=== PATIENT | female | born 1985 | race Two or more races ===

== ENCOUNTER → 2020-02-03 14:10 | Outpatient (BNVA) | payer MEDICAID, SELFPAY | PROVIDERS: PCP Emergency Medicine; Referring Provider Emergency Medicine; Visit Provider Nurse Practitioner | DX: K31.84 Gastroparesis (principal); K21.00 Gastro-esophageal reflux disease with esophagitis, without bleeding; K25.7 Chronic gastric ulcer without hemorrhage or perforation; K59.04 Chronic idiopathic constipation; Z79.899 Other long term (current) drug therapy | CPT/HCPCS: 99212 ==

== ENCOUNTER 2020-09-03 11:32 | Outpatient (REF) | payer MEDICAID, SELFPAY ==
--- NOTE | ~2020-09-03 | XR_ITS ---
EXAMINATION: XR SHOULDER, LEFT CLINICAL INFORMATION: Left shoulder pain. COMPARISON: None TECHNIQUE: AP external rotation, Grashey, scapular Y, and axillary views of the left shoulder. FINDINGS: Small to moderate spurring is seen at the insertion of the rotator cuff at the greater tuberosity. The glenohumeral and acromioclavicular joints are intact without significant degenerative changes. The soft tissues are unremarkable. XR/XR shoulder LT min 2V IMPRESSION: Small to moderate degenerative spur at the rotator cuff insertion without acute abnormality.
== END 2020-09-03 11:33 | disposition home or self-care (01) ==
LOC: HO.XRAY 11:32
PROVIDERS: Absent Provider Family Medicine; PCP Family Medicine; Visit Provider Registered Nurse Community Health
DX: M25.512 Pain in left shoulder (principal)
CPT/HCPCS: 73030

== ENCOUNTER → 2020-09-22 14:02 | Outpatient (BNVA) | payer MEDICAID, SELFPAY | PROVIDERS: PCP Emergency Medicine; Visit Provider Nurse Practitioner ==

== ENCOUNTER → 2020-11-06 13:50 | Outpatient (BNVA) | payer MEDICAID, SELFPAY | PROVIDERS: PCP Emergency Medicine; Visit Provider Nurse Practitioner | DX: K21.9 Gastro-esophageal reflux disease without esophagitis (principal); K59.04 Chronic idiopathic constipation; K31.84 Gastroparesis; K64.9 Unspecified hemorrhoids; K57.92 Diverticulitis of intestine, part unspecified, without perforation or abscess without bleeding; K25.7 Chronic gastric ulcer without hemorrhage or perforation | CPT/HCPCS: 99212 ==

== ENCOUNTER 2020-12-21 14:08 | Outpatient (REF) | payer MEDICAID, SELFPAY ==
[2020-12-21 16:04] LABS: Hematocrit 35.8 % (37-47); Mean Corpuscular HGB Conc 30.7 g/dl (31.0-35.0); Mean Corpuscular Hemoglobin 25.8 pg (27.0-33.0); Mean Platelet Volume 11.3 fL (9.4-12.3); Platelet Count 317 X10*3/uL (160-400); Red Blood Count 4.26 X10*6/uL (4.20-5.50); Red Cell Distribution Width 21.2 % (11.0-16.0); White Blood Count 4.6 X10*3/uL (4.8-10.8)
[2020-12-21 16:27] LABS: Alanine Aminotransferase 16 U/L (0-31); Albumin Level 4.2 g/dL (3.5-5.0); Alkaline Phosphatase 78 U/L (39-117); Anion Gap 11 (12-20); Aspartate Amino Transferase 17 U/L (5-31); Bilirubin Total 0.3 mg/dL (0.0-1.0); Blood Urea Nitrogen 14 mg/dL (9-16); C Reactive Protein 0.18 mg/dL (< or = 0.50); Carbon Dioxide 27 mmol/L (22-29); Chloride 105 mmol/L (96-108); Estimated Glomerular Filt Rate > 60; Glucose Random 211 mg/dL (60-115); Potassium 4.3 mmol/L (3.3-5.1); Sodium 139 mmol/L (135-145); Total Protein 7.7 g/dL (6.5-8.0)
[2020-12-28 10:27] LABS: Transglutaminase Ab IgG 36.8 U/mL; Transglutaminase IgA >250.0 U/mL
== END 2020-12-21 14:09 | disposition home or self-care (01) ==
LOC: HO.LAB 14:08
PROVIDERS: Nurse Practitioner Family; Visit Provider Nurse Practitioner
DX: Z12.11 Encounter for screening for malignant neoplasm of colon (principal); K58.9 Irritable bowel syndrome, unspecified; R14.0 Abdominal distension (gaseous); R10.11 Right upper quadrant pain
CPT/HCPCS: 36415; 80053; 83516; 85027; 86140

== ENCOUNTER 2020-12-22 15:20 | Outpatient (REF) | payer MEDICAID, SELFPAY | END 2020-12-22 15:21 | disposition home or self-care (01) | LOC: HO.LNP 15:20 | PROVIDERS: Visit Provider Nurse Practitioner Family | DX: K21.9 Gastro-esophageal reflux disease without esophagitis (principal) | CPT/HCPCS: 87338 ==

== ENCOUNTER → 2021-01-20 13:58 | Outpatient (BNVA) | payer MEDICAID, SELFPAY | PROVIDERS: Visit Provider Nurse Practitioner Family | DX: K25.7 Chronic gastric ulcer without hemorrhage or perforation (principal); K21.9 Gastro-esophageal reflux disease without esophagitis; K59.04 Chronic idiopathic constipation; K31.84 Gastroparesis; K64.9 Unspecified hemorrhoids; K90.0 Celiac disease | CPT/HCPCS: 99212 ==

== ENCOUNTER → 2021-02-02 15:21 | Outpatient (BNVA) | payer MEDICAID, SELFPAY | PROVIDERS: Visit Provider Nurse Practitioner Family ==

== ENCOUNTER → 2021-03-11 12:51 | Outpatient (BNVA) | payer MEDICAID, SELFPAY | PROVIDERS: PCP Family Medicine; Visit Provider Dietitian, Registered | DX: K90.0 Celiac disease (principal) | CPT/HCPCS: 97802 ==

== ENCOUNTER → 2021-04-22 13:56 | Outpatient (BNVA) | payer MEDICAID, SELFPAY | PROVIDERS: PCP Family Medicine; Visit Provider Dietitian, Registered | DX: K90.0 Celiac disease (principal); E10.9 Type 1 diabetes mellitus without complications; Z71.3 Dietary counseling and surveillance | CPT/HCPCS: 97803 ==

== ENCOUNTER 2021-07-13 14:08 | Outpatient (REF) | payer MEDICAID, SELFPAY ==
[2021-07-14 21:56] LABS: Transglutaminase IgA 148.1 U/mL
[2021-07-17 13:10] LABS: Vitamin D 25-OH, D2 <4 ng/mL; Vitamin D 25-OH, D3 10 ng/mL; Vitamin D 25-OH, Total 10 ng/mL (30-100)
== END 2021-07-13 14:09 | disposition home or self-care (01) ==
LOC: HO.LAB 14:08
PROVIDERS: PCP Family Medicine; Referring Provider Family Medicine; Visit Provider Nurse Practitioner Family
DX: R10.9 Unspecified abdominal pain (principal); K21.9 Gastro-esophageal reflux disease without esophagitis; K90.0 Celiac disease; E55.9 Vitamin D deficiency, unspecified
CPT/HCPCS: 36415; 82306; 86364; 99212

== ENCOUNTER → 2021-10-21 13:11 | Outpatient (BNVA) | payer MEDICAID, SELFPAY | PROVIDERS: PCP Family Medicine; Visit Provider Dietitian, Registered | DX: K90.0 Celiac disease (principal); E10.9 Type 1 diabetes mellitus without complications; Z71.3 Dietary counseling and surveillance | CPT/HCPCS: 97803 ==

== ENCOUNTER → 2021-10-25 11:11 | Day surgery (SDC) | payer MEDICAID, SELFPAY ==
--- NOTE | 2021-10-22 10:35 | HO.ANESPROP2 ---
HPI - Anesthesia Eval Consult details Narrative: CX'd DOS for high POC 36yo F for Upper Endoscopy PMFSH Active Problems Active Problems: All Active Problems (Updated 07/22/21 @ 15:50 by TRELL Watson) Celiac disease (Acute) Chronic gastric erosion (Acute) Diverticulitis (Acute) Hemorrhoids (Acute) GERD (gastroesophageal reflux disease) (Acute) Chronic idiopathic constipation (Acute) IBS (irritable bowel syndrome) (Acute) Past Medical History Medical History (Updated 07/22/21 @ 15:50 by TRELL Watson) Chronic gastric erosion Chronic idiopathic constipation Type 1 diabetes mellitus Family History Family History Father No problems noted. Mother Asthma Maternal Grandmother Diabetes HTN (hypertension) Breast cancer Sister Diabetes Surgical History Surgical History H/O hand surgery Hx of esophagogastroduodenoscopy Social History Social History Household Members: Spouse Alcohol intake: current Alcohol intake frequency: does not drink Patient Tobacco Use Status: Never used Tobacco Use of substances other than those prescribed or required for medical reasons: No Have you been hit, kicked, punched, or otherwise hurt by someone within the past year? If so, by whom?: No Are you DNR?: No Advance Directives: No Advance Directives Information Provided: Yes Meds Allergies Allergy/AdvReac Type Severity Reaction Status Date / Time iodine [IODINE] Allergy Severe HIVES, Verified 07/13/21 14:22 THROAT SWELLING Home Medications Medication Instructions Recorded Confirmed Last Taken Type ferrous gluconate 324 mg (38 mg 0 mg PO 01/20/21 Unknown History iron) tablet lorazepam 0.5 mg tablet 0 mg PO 01/20/21 Unknown History zolpidem 10 mg tablet 10 mg PO BEDTIME PRN Sleep 01/20/21 10/19/21 Unknown History albuterol sulfate 90 mcg/actuation 2 puff PO Q4-6H PRN Wheezing 10/19/21 10/19/21 Unknown History aerosol inhaler (ProAir HFA) escitalopram oxalate 10 mg tablet 1 tab PO QAM 10/19/21 10/19/21 Unknown History insulin lispro 100 unit/mL 0 - 100 unit subcut DAILY 10/19/21 10/19/21 Unknown History subcutaneous solution (Humalog U-100 Insulin) levonorgestrel 0.15 mg-ethinyl 1 tab PO DAILY 10/19/21 10/19/21 Unknown History estradiol 30 mcg tablets,3 mos pack(91) (Lurdes) Exam Exam Date and Time: October 22, 2021 1035 Assessment and Plan Assessment Anesthesia Assessment: Chart Reviewed
[2021-10-25 12:17] VITALS: BMI 21.9
[2021-10-25 12:38] LABS: Glucose, Whole Blood 313 mg/dL (60-115)
[2021-10-25 12:43] VITALS: BP 122/68; PULSE 102; RESP 18; TEMP 36.2; O2SAT 100
[2021-10-25 12:46] LABS: UPreg QC Valid YES; Urine Pregnancy NEGATIVE (NEGATIVE)
--- NOTE | 2021-10-25 12:57 | MHC.SHP ---
Pre-Procedural Eval Section A Date of Service: 10/25/21 The patient is an INPATIENT: No The History & Physical has been completed within 30 days and I have reviewed it.: No Section B Chief Complaint: reflux,epigastric pain,celiac Details of Present Illness: Abdominal pain, history of celiac disease Relevant Family History (Specify if Yes): No Relevant Social History: None Present Medications: see Short Stay Collaborative assessment Medical History: Significant History (Chronic gastric erosion Chronic idiopathic constipation Type 1 diabetes mellitus) History of Previous Operations: Relevant previous surgery/procedure and date(s) (H/O hand surgery Hx of esophagogastroduodenoscopy) Allergies: Allergies Allergy/AdvReac Type Severity Reaction Status Date / Time iodine [IODINE] Allergy Severe HIVES, Verified 07/13/21 14:22 THROAT SWELLING Plan I have reviewed the history and physical and performed a pertinent physical examination on my patient. No changes have occurred unless specified.
--- NOTE | 2021-10-25 13:13 | PC.NURSE ---
dr joyner and kwame at bedside pt cancelled high bs over 300
--- NOTE | 2021-10-25 13:17 | PC.NURSE ---
diabetic meds review with dr joyner and anesthesia plan inplace for meds taken prior to procedure when next schedule pt verbalized understanding with interpretor
== END ==
PROVIDERS: Nurse Practitioner; PCP Family Medicine; Visit Provider Internal Medicine Gastroenterology
DX: K21.9 Gastro-esophageal reflux disease without esophagitis (principal); Z53.09 Procedure and treatment not carried out because of other contraindication; E10.9 Type 1 diabetes mellitus without complications
CPT/HCPCS: 81025; 82947

== ENCOUNTER → 2021-11-08 15:20 | Outpatient (BNVA) | payer MEDICAID, SELFPAY | PROVIDERS: PCP Family Medicine; Referring Provider Family Medicine; Visit Provider Nurse Practitioner Family | DX: R10.9 Unspecified abdominal pain (principal); K21.9 Gastro-esophageal reflux disease without esophagitis; K90.0 Celiac disease; K58.1 Irritable bowel syndrome with constipation | CPT/HCPCS: 99212 ==

== ENCOUNTER 2022-03-23 07:54 | Day surgery (SDC) | payer MEDICAID, SELFPAY ==
[2022-03-18 14:01] VITALS: BMI 22.6
[2022-03-23 08:45] LABS: Glucose, Whole Blood 180 mg/dL (60-115)
[2022-03-23 08:51] VITALS: BP 107/66; PULSE 85; RESP 18; TEMP 36.3; O2SAT 100
[2022-03-23 08:53] LABS: UPreg QC Valid YES; Urine Pregnancy NEGATIVE (NEGATIVE)
--- NOTE | 2022-03-23 09:23 | MHC.SHP ---
Pre-Procedural Eval Section A Date of Service: 03/23/22 Section B Chief Complaint: reflux disease Details of Present Illness: celaic pos Ab Relevant Family History (Specify if Yes): No Relevant Social History: None Present Medications: see Short Stay Collaborative assessment Medical History: Significant History (Chronic gastric erosion Chronic idiopathic constipation Type 1 diabetes mellitus, celiac disease) History of Previous Operations: Relevant previous surgery/procedure and date(s) (H/O hand surgery Hx of esophagogastroduodenoscopy) Allergies: Allergies Allergy/AdvReac Type Severity Reaction Status Date / Time iodine [IODINE] Allergy Severe HIVES, Verified 11/08/21 15:31 THROAT SWELLING Review of Systems Sugical H&P ROS: Negative: Constitution, Cardiovascular, Respiratory, Neurological, Psychiatric, Hem-Onc, Allergic/Immunologic, Gastrointestinal, Genitourinary, Musculoskeletal, Integumentary, Endocrine and Eyes/Ears/Nose/Throat Exam Surgical H&P Exam: Normal: HEENT, Normal: Heart, Normal: Lungs, Normal: Extremities, Normal: Abdomen, Normal: Skin and Normal: Neurological Plan Diagnosis/Plan: Unchanged I have reviewed the history and physical and performed a pertinent physical examination on my patient. No changes have occurred unless specified. Time Spent With Patient Time: Total time managing care of this patient today ____ minutes.
--- NOTE | 2022-03-23 09:39 | P.CONAN_ITS ---
[facility] Active Problems Active Problems: All Active Problems (Updated 07/22/21 @ 15:50 by Darcy Palma [facility]) Celiac disease (Acute) Chronic gastric erosion (Acute) Diverticulitis (Acute) Hemorrhoids (Acute) GERD (gastroesophageal reflux disease) (Acute) Chronic idiopathic constipation (Acute) IBS (irritable bowel syndrome) (Acute) Past Medical History Medical History Chronic gastric erosion Chronic idiopathic constipation Type 1 diabetes mellitus Family History Family History Father No problems noted. Mother Asthma Maternal Grandmother Diabetes HTN (hypertension) Breast cancer Sister Diabetes Family history of problems with anesthesia: No Surgical History Surgical History H/O hand surgery Hx of esophagogastroduodenoscopy History of Problems with Anesthesia: No Social History Social History Household Members: Spouse Alcohol intake: current Alcohol intake frequency: does not drink Patient Tobacco Use Status: Never used Tobacco Use of substances other than those prescribed or required for medical reasons: No Are you DNR?: No Advance Directives: No Advance Directives Information Provided: Yes Meds Allergies Allergy/AdvReac Type Severity Reaction Status Date / Time iodine [IODINE] Allergy Severe HIVES, Verified 11/08/21 15:31 THROAT SWELLING Active Medications: Current Medications Ondansetron HCl (Ondansetron Hcl 4 Mg/2 Ml Vial) 4 mg IVPUSH ONCE PRN PRN Reason: Nausea and Vomiting Home Medications Medication Instructions Recorded Confirmed Last Taken Type ferrous gluconate 324 mg (38 mg 0 mg PO 01/20/21 Unknown History iron) tablet lorazepam 0.5 mg tablet 0 mg PO 01/20/21 Unknown History zolpidem 10 mg tablet 10 mg PO BEDTIME PRN Sleep 01/20/21 10/19/21 Unknown History albuterol sulfate 90 mcg/actuation 2 puff PO Q4-6H PRN Wheezing 10/19/21 10/19/21 Unknown History aerosol inhaler (ProAir HFA) escitalopram oxalate 10 mg tablet 1 tab PO QAM 10/19/21 10/19/21 Unknown History insulin lispro 100 unit/mL 0 - 100 unit subcut DAILY 10/19/21 10/19/21 Unknown History subcutaneous solution (Humalog U-100 Insulin) levonorgestrel 0.15 mg-ethinyl 1 tab PO DAILY 10/19/21 10/19/21 Unknown History estradiol 30 mcg tablets,3 mos pack(91) (Lurdes) Exam Exam Date and Time: March 23, 2022 0939 Height,Weight and Vital Signs: Height 5 ft 1 in Weight 54.431 kg Last Vital Signs Temp 97.4 F 03/23/22 08:51 Pulse 85 03/23/22 08:51 Resp 18 03/23/22 08:51 BP 107/66 03/23/22 08:51 Pulse Ox 100 03/23/22 08:51 O2 Del Method 03/23/22 08:51 Pertinent Lab Results Pertinent Lab Results: Laboratory Tests 03/23/22 03/23/22 08:15 08:41 POC Glucose 180 H Urine Test NEGATIVE Airway Mallampati Class: II TM Dist: >3cm Partial: Lower Heart: rrr Lungs: clear Assessment and Plan Final Anesthetic Review Family History of Problems with Anesthesia: No History of Problems with Anesthesia: No NPO: Yes ASA Class: II Final Preanesthetic Review: No Changes in Pt Med Stat, Meds/Allgs Chart Reviewed, Consent Obtained/Reviewed and Anes Risks/Benef Reviewed Patient Risk: Low Procedure Risk: Low Anesthetic Plan Anesthetic Plan: MAC: Disposition: Standard PACU
--- NOTE | 2022-03-23 09:46 | P.OP_ITS ---
Operative Note Operative Note Date of Service: 03/23/22 Narrative: Procedure Description: EGD Indication: GERD, celiac Ab pos (been on gluten free diet) Anesthesia: MAC FLEXIBLE TRANSORAL UPPER GASTROINTESTINAL ENDOSCOPY UPPER ENDOSCOPY Consent: Indications for the procedure and potential complications of bleeding, perforation, reaction to medications and missed diagnosis were discussed with the patient and informed consent was obtained. Instrument: Olympus GIF H 190 J mid size upper endoscope Monitoring: Vital signs and clinical assessment, continuous EKG monitoring, Pulse oximetry, Carbon Dioxide monitoring and blood pressure monitoring were done throughout the procedure. Procedure: The patient was placed in the left lateral decubitis position and pre-procedure medications were administered and a bite block was placed. The endoscope was inserted into the mouth and advanced under direct vision to the third part of duodenum. A careful inspection was made as the upper endoscope was withdrawn including a retroflexed examination of the proximal stomach; Findings and interventions are described below. Findings: Larynx:normal Esophagus: GE junction at 35 cm, diaphragm hiatus at 35 cm, very mild esoph agitis, bx taken from GEJ, and proximal/distal esophagus Stomach: Patchy gastric erythema, moderate severe in antrum with retained food and reduced motility noted. Biopsies were obtained. Grade 2 flap valve on retroflexed examination of the cardia. Duodenum: flattened mucosa with fissuring and scalloping, bx taken Intervention: Biopsies as noted above Impression/Findings: possible gastroparesis esophagitis gastritis duodenitis PLAN: would consider repeating GES if H pylori pos then treat hold nsaids gluten free diet adherence
[2022-03-23 10:08] VITALS: BP 94/56; PULSE 95; RESP 16; TEMP 36.8; O2SAT 99
[2022-03-23 10:22] LABS: Glucose, Whole Blood 40 mg/dL (60-115)
[2022-03-23 10:22] LABS: Glucose, Whole Blood 32 mg/dL (60-115)
[2022-03-23 10:23] VITALS: BP 108/69; PULSE 84; RESP 16; TEMP 36.8; O2SAT 100
[2022-03-23 10:28] LABS: Glucose, Whole Blood 236 mg/dL (60-115)
[2022-03-23] MEDS: Dextrose 50 % 25 GM/50 ML SYRINGE IVPUSH (10:28)
--- NOTE | 2022-03-23 10:28 | PC.NURSE ---
received patient and she was asking to check blood sugar. POC 40, notified OJ 2 cups and a banana given. Rechecked blood sugar 32. Dr. Tran notified Dr. Maldonado at the bedside with orders for D5 25gram 50ml given vis IV with positive effect. POC up 245. Patient remained A&Ox3 skin pale warm and dry. Continue to monitor.
[2022-03-23 10:35] VITALS: BP 103/68; PULSE 84; RESP 16; TEMP 36.4; O2SAT 100
== END 2022-03-23 11:27 | disposition home or self-care (01) ==
PROVIDERS: Visit Provider Internal Medicine Gastroenterology
PROC: 0DJ08ZZ Inspection of Upper Intestinal Tract, Via Natural or Artificial Opening Endoscopic (ICD-10-PCS; CPT 43235; principal; 2022-03-23 09:20)
DX: K21.9 Gastro-esophageal reflux disease without esophagitis (principal); K29.50 Unspecified chronic gastritis without bleeding; K29.80 Duodenitis without bleeding; K20.80 Other esophagitis without bleeding; K44.9 Diaphragmatic hernia without obstruction or gangrene; K90.0 Celiac disease; K58.9 Irritable bowel syndrome, unspecified; E10.9 Type 1 diabetes mellitus without complications; Z79.4 Long term (current) use of insulin; Z79.899 Other long term (current) drug therapy; Z91.041 Radiographic dye allergy status
CPT/HCPCS: 43239; 81025; 82947; 88305; 88342

== ENCOUNTER → 2022-04-15 14:09 | Outpatient (BNVA) | payer MEDICAID, SELFPAY | PROVIDERS: PCP Registered Nurse; Visit Provider Nurse Practitioner Family | DX: K21.00 Gastro-esophageal reflux disease with esophagitis, without bleeding (principal); K29.70 Gastritis, unspecified, without bleeding; K29.80 Duodenitis without bleeding; K90.0 Celiac disease; K58.1 Irritable bowel syndrome with constipation; Z98.890 Other specified postprocedural states | CPT/HCPCS: 99212 ==

== ENCOUNTER 2022-07-12 11:52 | Outpatient (REF) | payer MEDICAID, SELFPAY ==
[2022-07-12 13:28] LABS: Hematocrit 30.8 % (37.0-47.0); Hemoglobin 9.5 g/dl (12.0-16.0); Mean Corpuscular HGB Conc 30.8 g/dl (31.0-35.0); Mean Corpuscular Hemoglobin 25.6 pg (27.0-33.0); Mean Platelet Volume 10.5 fL (9.4-12.3); Platelet Count 320 X10*3/uL (160-400); Red Blood Count 3.71 X10*6/uL (4.20-5.50); Red Cell Distribution Width 15.2 % (11.0-16.0); White Blood Count 3.9 X10*3/uL (4.8-10.8)
== END 2022-07-12 11:53 | disposition home or self-care (01) ==
LOC: HO.LAB 11:52
PROVIDERS: PCP Registered Nurse; Visit Provider Nurse Practitioner Family
DX: K21.9 Gastro-esophageal reflux disease without esophagitis (principal); D64.9 Anemia, unspecified
CPT/HCPCS: 36415; 85027; 99212

== ENCOUNTER → 2022-08-09 08:32 | Outpatient (REF) | payer MEDICAID, SELFPAY ==
--- NOTE | ~2022-08-09 | NM_ITS ---
EXAMINATION: MD RADIONUCLIDE SOLID FOOD GASTRIC EMPTYING 4-HOUR STUDY CLINICAL INFORMATION: Gastroesophageal reflux disease without esophagitis. COMPARISON: None available. TECHNIQUE: A standard meal consisting of 4 oz of Egg Beaters brand tagged with 0.757 microcuries Tc-99m Sulfur Colloid, 8 oz water and 1 slice of toast with jelly was administered orally to the patient. Images were obtained using a dual head gamma camera in the anterior and posterior projections over of the stomach immediately post ingestion and at hourly intervals up to 4 hours post ingestion. The anterior and posterior counts at each time interval were averaged using the geometric mean and expressed as percentage of the immediate post ingestion counts. FINDINGS: There is good visualization of activity in the stomach immediately post ingestion. As the study progresses, there is good clearance of activity from the stomach and visualization of progressively increasing small bowel activity. By the end of the study, there is almost no retention noted in the stomach. Retention in the stomach at each time interval was: 1 hour 58%% (normal 37%-90%) 2 hours 35% (normal 30%-60%) 3 hours 19% 4 hours 6% (normal 0%-10%) MD/MD gastric emptying study IMPRESSION: Normal 4-hour solid food gastric emptying study.
== END ==
LOC: HO.NUCMED 08:32
PROVIDERS: PCP Registered Nurse; Visit Provider Nurse Practitioner Family
DX: K21.9 Gastro-esophageal reflux disease without esophagitis (principal)
CPT/HCPCS: 78264; A9541

== ENCOUNTER 2022-09-16 13:26 | Outpatient (REF) | payer MEDICAID, SELFPAY ==
--- NOTE | ~2022-09-16 | US_ITS ---
EXAMINATION: US PELVIS CLINICAL INFORMATION: Abnormal bleeding COMPARISON: None available. TECHNIQUE: Ultrasound of the pelvis is performed using both transabdominal and transvaginal transducers along with Doppler. Transvaginal imaging is performed due to inadequate visualization transabdominally. FINDINGS: The uterus is retroverted and retroflexed and measures 9.6 x 4.1 x 5.9 cm in dimension. No focal uterine lesion. Endometrial thickness is normal measuring 0.2 cm. The right ovary is normal-appearing and measures 2.1 x 1.2 x 1.7 cm. Left ovary measures 4.5 x 2.5 x 3 cm. There is a 3.1 x 2.2 x 2.6 cm complex left ovarian cyst with septations and internal echoes. This likely represents a hemorrhagic cyst. Doppler color flow is documented to the right ovary. There is no fluid in the pelvis. US/US pelvic and transvaginal IMPRESSION: Normal-appearing uterus and endometrium. 3.1 x 2.2 x 2.6 cm complex left ovarian cyst suggestive of a hemorrhagic cyst.
== END 2022-09-16 13:27 | disposition home or self-care (01) ==
LOC: HO.US 13:26
PROVIDERS: PCP General Practice; Visit Provider General Practice
DX: N93.9 Abnormal uterine and vaginal bleeding, unspecified (principal)
CPT/HCPCS: 76830; 76856

== ENCOUNTER 2022-10-19 17:45 | Outpatient (REF) | payer MEDICAID, SELFPAY ==
[2022-10-20 14:07] LABS: BV Int Neg Control Negative (Negative); BV Int Pos Control Positive (Positive)
[2022-10-20 15:47] LABS: CT PCR NOT DETECTED (Not Detect.); NG PCR NOT DETECTED (Not Detect.)
== END 2022-10-19 17:46 | disposition home or self-care (01) ==
LOC: HO.HHCLNP 17:45
PROVIDERS: Visit Provider General Practice
DX: N93.9 Abnormal uterine and vaginal bleeding, unspecified (principal)
CPT/HCPCS: 0353U; 36415; 87086; 87480; 87491; 87510; 87591; 87660

== ENCOUNTER 2022-12-26 14:23 | Outpatient (REF) | payer MEDICAID, SELFPAY ==
[2022-12-26 17:09] LABS: Lipase 20 U/L (8-78)
[2022-12-26 17:47] LABS: Folate 12.3 ng/mL (> or = 4.0); Vitamin B12 837 pg/mL (200-900)
[2022-12-28 13:28] LABS: Transglutaminase IgA 46.7 U/mL
[2022-12-30 16:38] LABS: Vitamin D 25-OH, D2 <4 ng/mL; Vitamin D 25-OH, D3 19 ng/mL; Vitamin D 25-OH, Total 19 ng/mL (30-100)
== END 2022-12-26 14:24 | disposition home or self-care (01) ==
LOC: HO.LAB 14:23
PROVIDERS: PCP General Practice; Visit Provider Nurse Practitioner Family
DX: R10.9 Unspecified abdominal pain (principal); R19.7 Diarrhea, unspecified; E55.9 Vitamin D deficiency, unspecified; K21.9 Gastro-esophageal reflux disease without esophagitis; K90.0 Celiac disease; K64.9 Unspecified hemorrhoids; K58.1 Irritable bowel syndrome with constipation; D50.8 Other iron deficiency anemias
CPT/HCPCS: 36415; 82306; 82607; 82746; 83690; 86364; 99212

== ENCOUNTER 2022-12-26 14:23 | Outpatient (AMB) | payer MEDICAID, SELFPAY ==
--- NOTE | 2022-12-26 14:39 | A.OFFVIS_ITS ---
Intake Vital Signs 12/26/22 14:40 Height 5 ft 1 in Weight 118 lb 2.684 oz BMI 22.3 BP 85/50 L Blood Pressure Location Lt brachial Position Sitting Pulse 103 H Intake Visit Reasons: follow up GES Intake Note: Loly presents to in office follow up of gastric emptying scan. CC: Patient reports about 2 weeks with nausea, diarrhea, burning sensation, and heartburn. Pt sates she is not eating well to avoid going to the bathroom at [facility]. Patient reports she is concerned she ingested [place] water during the most recent water emergency but she is not sure. 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 Will change Nexium to omeprazole. Patient states that she was doing better when she was taking that in the past. She can continue take sucralfate at bedtime. Discussed with patient avoiding dietary triggers and late night snacking. Staying upright for minimum 3 hours after meals discussed with patient Anemia History of anemia in the past. Last available blood work was from December of 2020. Will repeat lab work today. Celiac disease Continue avoiding dietary triggers. Patient will continue avoiding gluten. We will send patient for upper endoscopy in the short future to evaluate her small bowel. Will also retest her transglutaminase next he visit. Hemorrhoids History of hemorrhoids will send a script for Proctosol any. Patient will call the office if he will continue me to have rectal bleeding or develops rectal pain Chronic idiopathic constipation Continue Senokot and colons. The patient will continue in to the constipated we might try to put her on Linzess. She IBS (irritable bowel syndrome) Postprandial abdominal bloating postprandially occasionally. Will send patient for gastric emptying study. Patient was encouraged to follow FODMAP diet. List of food recommended as well as list of food to avoid given to patient. I will see her in 3 months, sooner on as needed basis. Patient is agreeable to this plan and verbalizes understanding of instructions. She was given the opportunity to ask questions and all questions answered. TODAY'S VISIT: Patient is here today for follow-up. Patient reports that she has been feeling sick lately. Patient states that she is feeling nauseous, epigastric burning postprandially and even after drinking water. Patient states that she also has diarrhea. Having trouble at work as she has to run to the bathroom frequently. Patient is worry if she ingests that water that was contaminated. Patient denies feeling nauseous. States that she is taking sucralfate, however she feels like she has burning right after taking it. Patient is taking omeprazole in the morning, feels like it is not working. Patient states that she is trying to avoid gluten as best as she can. Diagnosis with celiac disease in the past and we have discussed the importance of avoiding gluten altogether in order for her to feel better. Patient reports that she has her bowels well except for recent diarrhea patient reports occasional dyspepsia without dysphagia or odynophagia. Denies melena, hematochezia, unintentional weight loss or ribbon like stools. [facility] Medical History Chronic gastric erosion Chronic idiopathic constipation Type 1 diabetes mellitus Surgical History H/O hand surgery Hx of esophagogastroduodenoscopy Family History Father No problems noted. Mother Asthma Maternal Grandmother Diabetes HTN (hypertension) Breast cancer Sister Diabetes Social History Household Members: Spouse Alcohol intake: current Alcohol intake frequency: does not drink Patient Tobacco Use Status: Never used Tobacco Review of Systems Const Denies weight gain and Denies weight loss ENT Reports no additional complaints, Denies dysphagia and Denies odynophagia Card Reports no additional complaints Resp Reports no additional complaints GI Reports abdominal pain (Epigastric), Denies belching, Denies melena, Denies bloating, Denies change in bowel habits, Denies dysphagia, Denies excessive flatus, Denies dyspepsia, Reports heartburn, Denies diarrhea, Reports loose stools, Reports nausea, Denies odynophagia and Denies vomiting Reports no additional complaints Musc Reports no additional complaints Neuro Reports no additional complaints Psych Reports no additional complaints Endo Reports no additional complaints Physical Exam Vital Signs: Last Vital Signs Pulse 103 H 12/26/22 14:40 BP 85/50 L 12/26/22 14:40 BMI result Body Mass Index 22.3 Const General: healthy appearing, no acute distress and well developed Nutritional Appearance: well nourished Orientation/consciousness: patient oriented x3 HEENT Head: Yes normal to inspection, Yes normocephalic and Yes atraumatic Face and sinus: Yes normal facial exam Mouth: Normal oral and palatal mucosa present Throat: Yes posterior oropharynx normal, Yes tonsils normal and Yes uvula midline Eyes General: appearance normal, both eyes and all related structures Neck Neck: Yes normal visual inspection, Yes full ROM and Yes trachea midline Thyroid: Thyroid normal Resp Effort & Inspection: normal respiratory effort, able to speak in complete sentences, no tracheal deviation and symmetric chest movement Auscultation: clear to auscultation bilaterally Cardio Rate: regular rate Heart sounds: S1 normal heart sound present and S2 normal heart sound present GI Inspection: Yes normal to inspection and No distended Palpation (GI): Soft to palpation, not firm, nontender and No hepatosplenomegaly present Auscultation: normal bowel sounds General: Yes no CVA tenderness Back/Spine/Pelvis Back: no CVA tenderness Skin General skin exam: elasticity normal, turgor normal and dry skin Neuro General: patient oriented x3 Psych Appearance: grossly normal Mental Status: mental status grossly normal Speech and movement: Normal speech and movement present Results Reviewed Results Reviewed: GASTRIC EMPTYING STUDY FINDINGS: There is good visualization of activity in the stomach immediately post ingestion. As the study progresses, there is good clearance of activity from the stomach and visualization of progressively increasing small bowel activity. By the end of the study, there is almost no retention noted in the stomach. Retention in the stomach at each time interval was: 1 hour 58%% (normal 37%-90%) 2 hours 35% (normal 30%-60%) 3 hours 19% 4 hours 6% (normal 0%-10%) NM/NM gastric emptying study IMPRESSION: Normal 4-hour solid food gastric emptying study. Assessment & Plan Assessment & Plan (1) GERD (gastroesophageal reflux disease): Code(s): K21.9 - Gastro-esophageal reflux disease without esophagitis Qualifiers: Esophagitis presence: esophagitis presence not specified Qualified Code(s): K21.9 - Gastro-esophageal reflux disease without esophagitis (2) Celiac disease: Code(s): K90.0 - Celiac disease (3) Hemorrhoids: Code(s): K64.9 - Unspecified hemorrhoids Qualifiers: Hemorrhoid type: unspecified Qualified Code(s): K64.9 - Unspecified hemorrhoids (4) Chronic idiopathic constipation: Code(s): K59.04 - Chronic idiopathic constipation (5) IBS (irritable bowel syndrome): Code(s): K58.9 - Irritable bowel syndrome without diarrhea Qualifiers: Irritable bowel syndrome type: with constipation Qualified Code(s): K58.1 - Irritable bowel syndrome with constipation (6) Anemia: Code(s): D64.9 - Anemia, unspecified Qualifiers: Anemia type: iron deficiency Iron deficiency anemia type: inadequate dietary iron intake Qualified Code(s): D50.8 - Other iron deficiency anemias Plan Patient will start taking pantoprazole in the morning. She can stop sucralfate at bedtime and start taking famotidine and. The importance of avoiding dietary triggers discussed with her again. Stressed the importance of avoiding gluten altogether. Will repeat transglutaminase to see if she has been restricting gluten. Will send her for to do GI panel to rule out any viral component of her having diarrhea. Will also rule out pancreatic insufficiency. Will recheck vitamin B12 and folate as well as vitamin-D level. Will check for H pylori and will treat empirically if positive. Continue taking Proctosol. Patient was also encouraged to do Sitz baths. Patient will return in 3 months, sooner on as needed basis. She is agreeable to this plan and verbalizes understanding of instructions. She was given the opportunity to ask questions and all questions answered. Thank you for allowing me to participate in her care Orders: Orders Pancreatic Elastase-1 12/27/22 R10.9 - Unspecified abdominal pain Vitamin B12 and Folate 12/26/22 R19.7 - Diarrhea, unspecified Lipase 12/26/22 R10.9 - Unspecified abdominal pain Transglutaminase IgA 12/26/22 R10.9 - Unspecified abdominal pain GI Panel 12/27/22 R19.7 - Diarrhea, unspecified H pylori Ag Stool 12/27/22 K21.9 - Gastro-esophageal reflux disease without esophagitis Vitamin D 25-OH (D2 and D3) 12/26/22 E55.9 - Vitamin D deficiency, unspecified Medications: New pantoprazole take one tablet half an hour before breakfast 40 mg PO DAILY 30 tabs 2RF K21.9 - Gastro-esophageal reflux disease without esophagitis famotidine (Pepcid) 20 mg PO BEDTIME 30 tabs 3RF K21.9 - Gastro-esophageal reflux disease without esophagitis Refilled hydrocortisone 2.5% (Proctosol HC) 1 appl [place] BID-QID PRN 30 grams 2RF hemorrhoids K64.9 - Unspecified hemorrhoids Discontinued sucralfate Discontinued Reason: Doctor's Order 1 g PO BID PRN 60 tabs 3RF GI irritation omeprazole Discontinued Reason: Doctor's Order 40 mg PO DAILY 90 caps 3RF K21.9 - Gastro-esophageal reflux disease without esophagitis Coding Level of Care Code Est Pt Level 4 (56400) Diagnoses Gastroesophageal reflux disease, unspecified whether esophagitis present K21.9 Esophagitis presence: esophagitis presence not specified Celiac disease K90.0 Hemorrhoids, unspecified hemorrhoid type K64.9 Hemorrhoid type: unspecified Chronic idiopathic constipation K59.04 Irritable bowel syndrome with constipation K58.1 Irritable bowel syndrome type: with constipation Iron deficiency anemia secondary to inadequate dietary iron intake D50.8 Anemia type: iron deficiency Iron deficiency anemia type: inadequate dietary iron intake Time Spent (min) 35 Comment 20 minutes spent with patient and additional 15 minutes spent reviewing her records.
[2022-12-26 14:40] VITALS: BP 85/50; PULSE 103; BMI 22.3
== END 2022-12-26 15:34 | disposition home or self-care (01) ==
PROVIDERS: PCP General Practice; Visit Provider Nurse Practitioner Family
DX: K21.9 Gastro-esophageal reflux disease without esophagitis (principal); K90.0 Celiac disease; K64.9 Unspecified hemorrhoids; K58.1 Irritable bowel syndrome with constipation; D50.8 Other iron deficiency anemias
CPT/HCPCS: 99214

== ENCOUNTER 2022-12-27 17:25 | Outpatient (REF) | payer MEDICAID, SELFPAY ==
[2022-12-28 09:25] LABS: Adenovirus F 40/41 Not Detected (Not Detect.); Astrovirus Not Detected (Not Detect.); Campylobacter Not Detected (Not Detect.); Cryptosporidium Not Detected (Not Detect.); Cyclospora cayetanensis Not Detected (Not Detect.); E. coli EAEC Not Detected (Not Detect.); E. coli EPEC Not Detected (Not Detect.); E. coli ETEC Not Detected (Not Detect.); E. coli STEC Not Detected (Not Detect.); Entamoeba histolytica Not Detected (Not Detect.); Giardia lamblia Not Detected (Not Detect.); Norovirus GI/GII Not Detected (Not Detect.); Plesiomonas shigelloides Not Detected (Not Detect.); Rotavirus A Not Detected (Not Detect.); Salmonella Not Detected (Not Detect.); Sapovirus Not Detected (Not Detect.); Shigella sp./EIEC Not Detected (Not Detect.); Vibrio Not Detected (Not Detect.); Vibrio Cholerae Not Detected (Not Detect.); Yersinia enterocolitica Not Detected (Not Detect.)
[2023-01-05 18:12] LABS: Pancreatic Elastase-1 >500 mcg/g
== END 2022-12-27 17:26 | disposition home or self-care (01) ==
LOC: HO.LNP 17:25
PROVIDERS: Visit Provider Nurse Practitioner Family
DX: R10.9 Unspecified abdominal pain (principal); R19.7 Diarrhea, unspecified; K21.9 Gastro-esophageal reflux disease without esophagitis
CPT/HCPCS: 82656; 87338; 87507

== ENCOUNTER 2023-03-29 18:12 | Emergency (ER) | payer MEDICAID, SELFPAY ==
--- NOTE | ~2023-03-29 | XR_ITS ---
EXAMINATION: XR CHEST CLINICAL INFORMATION: Cough. COMPARISON: None available. TECHNIQUE: 2 views of the chest were obtained. FINDINGS: No significant abnormality is noted involving the heart, lungs, mediastinum, bony thorax or soft tissues. XR/XR chest 2V IMPRESSION: Unremarkable chest exam
[2023-03-29 18:20] VITALS: BP 172/116; PULSE 116; O2SAT 99; BMI 46.6
[2023-03-29 18:35] LABS: Glucose, Whole Blood 327 mg/dL (60-115)
--- NOTE | 2023-03-29 18:47 | PC.NURSE ---
Patient arrived from clinic after BS reading was high per ems BS was 446. Upon arrival to er BS 336. Patient reports BS`s have been high and this is normal for her. Reports fast heart beat and headache. Denies chest pain
[2023-03-29 18:50] LABS: MANUAL DIFF FLAG NO
[2023-03-29] MEDS: 0.9 % Sodium Chloride 1,000 ML 999 ML IV (18:52)
[2023-03-29 18:54] LABS: Basophils Percent Auto 0.4 % (0-2); Eosinophils Absolute Auto 0.3 X10*3/uL (0.0-0.4); Eosinophils Percent Auto 3.2 % (0-4); Hematocrit 34.2 % (37.0-47.0); Hemoglobin 11.1 g/dl (12.0-16.0); Imm Gran Abs Auto 0.02 X10*3/uL (0.00-0.03); Imm Gran Pct Auto 0.3 % (0.0-0.4); Lymphocytes Absolute Auto 1.7 X10*3/uL (1.2-4.9); Lymphocytes Percent Auto 21.3 % (20-40); Mean Corpuscular HGB Conc 32.5 g/dl (31.0-35.0); Mean Corpuscular Hemoglobin 29.5 pg (27.0-33.0); Mean Platelet Volume 10.3 fL (9.4-12.3); Monocytes Absolute Auto 0.5 X10*3/uL (0.1-1.2); Monocytes Percent Auto 6.4 % (2-11); Neutrophils Absolute Auto 5.3 x10*3/uL (2.0-8.3); Neutrophils Percent Auto 68.4 % (45-73); Platelet Count 318 X10*3/uL (160-400); Red Blood Count 3.76 X10*6/uL (4.20-5.50); Red Cell Distribution Width 13.7 % (11.0-16.0); White Blood Count 7.8 X10*3/uL (4.8-10.8)
[2023-03-29 18:57] LABS: VBG Base Excess 3.9 mmol/L; VBG HCO3 27 mmol/L (22-26); VBG pCO2 37 mmHg; VBG pH 7.47 (7.32-7.43); VBG pO2 69 mmHg
[2023-03-29 19:01] LABS: Venous Blood Gas Refer to POC result
[2023-03-29 19:11] LABS: Alanine Aminotransferase 11 U/L (0-31); Albumin Level 3.9 g/dL (3.5-5.0); Alkaline Phosphatase 71 U/L (39-117); Anion Gap 10 (12-20); Aspartate Amino Transferase 18 U/L (5-31); Beta-Hydroxybutyrate 0.09 mmol/L (0.02-0.27); Bilirubin Total 0.1 mg/dL (0.0-1.0); Blood Urea Nitrogen 16 mg/dL (9-16); Calcium 9.9 mg/dL (8.4-10.2); Carbon Dioxide 27 mmol/L (22-29); Chloride 108 mmol/L (96-108); Estimated Glomerular Filt Rate 54; Glucose Random 290 mg/dL (60-115); Lipase 32 U/L (8-78); Magnesium 2.1 mg/dL (1.6-2.6); Sodium 141 mmol/L (135-145); Total Protein 7.8 g/dL (6.5-8.0)
[2023-03-29 19:12] VITALS: BP 111/68; PULSE 98; RESP 20; TEMP 37; O2SAT 98
[2023-03-29 19:29] VITALS: BP 103/61; PULSE 105; RESP 16; O2SAT 98
[2023-03-29 19:35] LABS: Influenza A PCR NEGATIVE (Negative); Influenza B PCR NEGATIVE (Negative); Resp Syncy Virus RNA Qual PCR NEGATIVE (Negative); SARS COV2 PCR INHOUSE NEGATIVE (Negative)
--- NOTE | 2023-03-29 19:40 | ED_ITS ---
HPI - Recheck/Abnormal Lab/Rx General Chief Complaint: Recheck/Abnormal Lab/Rx Stated Complaint: HIGH BS PER EMS Time Seen by Provider: 03/29/23 18:20 Source: patient Mode of arrival: EMS Limitations: language barrier (Guyanese-speaking entry level lab technician utilized) History of Present Illness HPI narrative: Patient is a 37-year-old female who presents emergency department for evaluation of hyperglycemia. She is a type 1 diabetic, she has a continuous blood glucose monitor that has not been working recently, she is awaiting an appoint with her primary special educator in June of 2023 to have a replacement for her sensor. She contacted her primary care provider today to see if they could help her in getting a replacement, as she has noted that for the past week she has been experiencing higher blood glucose levels a normal. She states on a typical day it is usual for her to have a variation in her blood glucose levels between 100- 300s which she states is ?dependent on her mood?. However, over the past week she has noticed blood glucose level to be in the 400s which is atypical for her. This afternoon it was in the 400s prior to going to the doctor's office. She has been checking her glucose levels with a fingerstick monitor which corresponds with her insulin pump, [employer], which by her account schedules bolus dosages based on her glucometer readings which she states she has been compliant with. At the doctor's office today her glucose was reading ?high? and therefore she was referred to the emergency department by EMS. She reports otherwise feeling well, has no complaints, denies any recent ill like symptoms. She has been in DKA in the past, most recent episode was in 2006. Related Data Home Medications Medication Instructions Recorded Confirmed lorazepam 0.5 mg tablet 0 mg PO 01/20/21 albuterol sulfate 90 mcg/actuation 2 puff PO Q4-6H PRN Wheezing 10/19/21 10/19/21 aerosol inhaler (ProAir HFA) escitalopram oxalate 10 mg tablet 1 tab PO QAM 10/19/21 10/19/21 insulin lispro 100 unit/mL 0 - 100 unit subcut DAILY 10/19/21 10/19/21 subcutaneous solution (Humalog U-100 Insulin) trazodone 50 mg tablet 25 - 50 mg PO BEDTIME PRN 12/26/22 Previous Rx's Medication Instructions Recorded hydrocortisone 2.5 % topical cream 1 appl NC BID PRN hemorrhoids #30 12/21/20 with perineal applicator grams (Proctosol HC) sennosides 8.6 mg tablet (Natural 17.2 mg (2 x 8.6 mg) PO BEDTIME 11/08/21 Senna Laxative) constipation #60 tabs docusate sodium 100 mg capsule 100 mg PO BID #60 caps 01/26/22 (Stool Softener) hydrocortisone 2.5 % topical cream 1 appl NC BID-QID PRN hemorrhoids 12/26/22 with perineal applicator #30 grams (Proctosol HC) famotidine 20 mg tablet (Pepcid) 20 mg PO BEDTIME #90 tabs 12/27/22 pantoprazole 40 mg tablet,delayed 40 mg PO DAILY #90 tabs 12/27/22 release cholecalciferol (vitamin D3) 50 50 mcg PO DAILY #90 caps 12/30/22 mcg (2,000 unit) capsule dicyclomine 10 mg capsule 10 mg PO TID #90 caps 03/21/23 Allergies Allergy/AdvReac Type Severity Reaction Status Date / Time iodine [IODINE] Allergy Severe HIVES, Verified 12/26/22 14:44 THROAT SWELLING gluten Allergy Vomiting Verified 12/26/22 14:44 Review of Systems 2 Review of Systems: Yes all other systems are reviewed and are negative [facility] Past Medical History Attestation statement: The following information was validated with the patient. Source: old records reviewed Medical History Type 1 diabetes mellitus Chronic idiopathic constipation Chronic gastric erosion Surgical History H/O hand surgery Hx of esophagogastroduodenoscopy Family History Family History Father No problems noted. Mother Asthma Maternal Grandmother Diabetes HTN (hypertension) Breast cancer Sister Diabetes Social History Social History Household Members: Spouse Alcohol intake: current Alcohol intake frequency: does not drink Patient Tobacco Use Status: Never used Tobacco Advance Directives: No Advance Directives Information Provided: No Physical Exam 2 Vital Signs: Vital Signs: Last Vital Signs Temp 98.3 F 03/29/23 23:28 Pulse 100 03/29/23 23:28 Resp 14 03/29/23 23:28 BP 122/67 03/29/23 23:28 Pulse Ox 99 03/29/23 23:28 O2 Del Method Room Air 03/29/23 23:28 BMI result Body Mass Index 46.6 Appearance: Alert.?Oriented to person, place and time. No acute distress.?Normal affect. Eyes: Pupils equal, round and reactive to light.? ENT: Pharynx normal.?? Neck: Normal inspection.? Neck supple.?? CVS: Heart sounds normal. Normal heart rate and rhythm.? Pulses normal.?? Respiratory: No respiratory distress.? Lung sounds clear to auscultation bilaterally?? Abdomen: Soft and non-tender. Normoactive bowel sounds. Skin: Skin warm and dry.? Normal skin color.? Extremities: No lower extremity edema.? Neuro: Moves all extremities spontaneously. Sensation intact bilaterally. No focal neuro deficits. Ambulates with normal steady gait. Course Reevaluation(s) Reevaluation #1: CBC is without leukocytosis, normocytic anemia does not meet transfusion criteria. Venous blood gases revealing metabolic alkalosis, CMP overall unremarkable, no anion gap, random glucose of 290. Not consistent with DKA. Beta hydroxybutyrate within normal range. Viral testing is negative. Urinalysis without evidence of infection, hematuria present, currently menstruating. At this time feel that she is stable for discharge home. Given she is currently receiving bolus dosing with her insulin pump, and her blood sugars appear to be very labile in readings, would not make any changes to her current insulin regimen and advised close follow-up with her primary special educator. Reviewed worrisome signs and symptoms that would warrant re-evaluation in the emergency department. All questions answered. Stable for discharge. Time: 22:54 Medications Administered Discontinued Medications Generic Name Dose Route Start Last Admin Trade Name Freq PRN Reason Stop Dose Admin Sodium Chloride 1,000 mls @ 999 mls/hr 03/29/23 18:30 03/29/23 21:21 Ns IV 03/29/23 19:30 Infused .Q1H1M ANNE Infusion Medical Decision Making Medical Decision Making MDM Narrative: Patient is a 37-year-old female with past medical history of type 1 diabetes, celiac disease, GERD, IBS, diverticulitis who presents emergency department for evaluation of hyperglycemia as per HPI. At the time my examination she appears overall well. Nontoxic. Afebrile. Point of care glucose obtained upon her arrival to the emergency department revealing 327. Plan to obtain labs to evaluate for DKA, patient will receive 1 L normal saline IV fluid, will defer additional insulin dosing at this time as she reports recent bolus dosing from her pump. Plan to exclude infectious etiologies as cause for hyperglycemia. Differential Diagnosis Differential Diagnoses: The differential diagnosis associated with the presentation includes (DKA, HHS, infectious process, pump malfunction.) Admission/Observation Consideration of admission/observation: Escalation of care including admission/observation considered (See narrative above and course narrative for further detail) Lab Data MDM Lab Attestation statement: I reviewed the patient's lab results. 03/29/23 18:45 03/29/23 18:45 Labs: Lab Results 03/29/23 03/29/23 03/29/23 Range/Units 18:27 18:45 18:50 WBC 7.8 (4.8-10.8) X10*3/uL RBC 3.76 L (4.20-5.50) X10*6/uL Hgb 11.1 L (12.0-16.0) g/dl Hct 34.2 L (37.0-47.0) % MCV 91.0 (80.0-98.0) fL MCH 29.5 (27.0-33.0) pg MCHC 32.5 (31.0-35.0) g/dl RDW 13.7 (11.0-16.0) % Plt Count 318 (160-400) X10*3/uL MPV 10.3 (9.4-12.3) fL Immature Gran % (Auto) 0.3 (0.0-0.4) % Neut % (Auto) 68.4 (45-73) % Lymph % (Auto) 21.3 (20-40) % Sutton % (Auto) 6.4 (2-11) % Eos % (Auto) 3.2 (0-4) % Baso % (Auto) 0.4 (0-2) % Lymph # (Auto) 1.7 (1.2-4.9) X10*3/uL Sutton # (Auto) 0.5 (0.1-1.2) X10*3/uL Eos # (Auto) 0.3 (0.0-0.4) X10*3/uL Baso # (Auto) 0.0 (0.0-0.2) X10*3/uL Abs Immat Gran (auto) 0.02 (0.00-0.03) X10*3/uL Absolute Neuts (auto) 5.3 (2.0-8.3) x10*3/uL Absolute Nucleated RBC 0.000 (0.0-0.012) X10*3/uL Nucleated RBC % (auto) 0.0 (0.0-0.2) /100WBC VBG pH 7.47 H (7.32-7.43) VBG pCO2 37 mmHg VBG pO2 69 mmHg VBG HCO3 27 H (22-26) mmol/L VBG O2 Saturation 95.0 % VBG Base Excess 3.9 mmol/L Sodium 141 (135-145) mmol/L Potassium 4.0 (3.3-5.1) mmol/L Chloride 108 (96-108) mmol/L Carbon Dioxide 27 (22-29) mmol/L Anion Gap 10 L (12-20) BUN 16 (9-16) mg/dL Creatinine 1.14 (0.5-1.4) mg/dL Estim Creat Clear Calc 86.0 Estimated GFR 54 POC Glucose 327 H (60-115) mg/dL Random Glucose 290 H (60-115) mg/dL Calcium 9.9 (8.4-10.2) mg/dL Magnesium 2.1 (1.6-2.6) mg/dL Total Bilirubin 0.1 (0.0-1.0) mg/dL AST 18 (5-31) U/L ALT 11 (0-31) U/L Alkaline Phosphatase 71 (39-117) U/L Total Protein 7.8 (6.5-8.0) g/dL Albumin 3.9 (3.5-5.0) g/dL Lipase 32 (8-78) U/L Beta-Hydroxybutyrate 0.09 (0.02-0.27) mmol/L Urine Color Urine Appearance Urine pH (5.0-9.0) Ur Specific Iselin (1.005-1.025) Urine Protein (Neg-Trace) mg/dL Urine Glucose (UA) (Negative) mg/dL Urine Ketones (Negative) mg/dL Urine Blood (Negative) Urine Nitrite (Negative) Ur Leukocyte Esterase (Negative) Urine RBC (0-2) /HPF Urine WBC (0-5) /HPF Ur Squamous Epith Cells (0-2) /HPF Urine Bacteria (None Seen) Hyaline Casts (0-2) /LPF Influenza Type A (PCR) NEGATIVE (Negative) Influenza Type B (PCR) NEGATIVE (Negative) RSV RNA Qual (PCR) NEGATIVE (Negative) SARS-CoV-2 RNA (RT-PCR) NEGATIVE (Negative) 03/29/23 Range/Units 21:49 WBC (4.8-10.8) X10*3/uL RBC (4.20-5.50) X10*6/uL Hgb (12.0-16.0) g/dl Hct (37.0-47.0) % MCV (80.0-98.0) fL MCH (27.0-33.0) pg MCHC (31.0-35.0) g/dl RDW (11.0-16.0) % Plt Count (160-400) X10*3/uL MPV (9.4-12.3) fL Immature Gran % (Auto) (0.0-0.4) % Neut % (Auto) (45-73) % Lymph % (Auto) (20-40) % Sutton % (Auto) (2-11) % Eos % (Auto) (0-4) % Baso % (Auto) (0-2) % Lymph # (Auto) (1.2-4.9) X10*3/uL Sutton # (Auto) (0.1-1.2) X10*3/uL Eos # (Auto) (0.0-0.4) X10*3/uL Baso # (Auto) (0.0-0.2) X10*3/uL Abs Immat Gran (auto) (0.00-0.03) X10*3/uL Absolute Neuts (auto) (2.0-8.3) x10*3/uL Absolute Nucleated RBC (0.0-0.012) X10*3/uL Nucleated RBC % (auto) (0.0-0.2) /100WBC VBG pH (7.32-7.43) VBG pCO2 mmHg VBG pO2 mmHg VBG HCO3 (22-26) mmol/L VBG O2 Saturation % VBG Base Excess mmol/L Sodium (135-145) mmol/L Potassium (3.3-5.1) mmol/L Chloride (96-108) mmol/L Carbon Dioxide (22-29) mmol/L Anion Gap (12-20) BUN (9-16) mg/dL Creatinine (0.5-1.4) mg/dL Estim Creat Clear Calc Estimated GFR POC Glucose (60-115) mg/dL Random Glucose (60-115) mg/dL Calcium (8.4-10.2) mg/dL Magnesium (1.6-2.6) mg/dL Total Bilirubin (0.0-1.0) mg/dL AST (5-31) U/L ALT (0-31) U/L Alkaline Phosphatase (39-117) U/L Total Protein (6.5-8.0) g/dL Albumin (3.5-5.0) g/dL Lipase (8-78) U/L Beta-Hydroxybutyrate (0.02-0.27) mmol/L Urine Color Yellow Urine Appearance Cloudy Urine pH >= 9.0 (5.0-9.0) Ur Specific Iselin 1.020 (1.005-1.025) Urine Protein 100 (2+) H (Neg-Trace) mg/dL Urine Glucose (UA) 250 H (Negative) mg/dL Urine Ketones Trace (Negative) mg/dL Urine Blood Large (3+) H (Negative) Urine Nitrite Negative (Negative) Ur Leukocyte Esterase Negative (Negative) Urine RBC 0-2 (0-2) /HPF Urine WBC 0-5 (0-5) /HPF Ur Squamous Epith Cells 11-20 (0-2) /HPF Urine Bacteria Trace (None Seen) Hyaline Casts 0-2 (0-2) /LPF Influenza Type A (PCR) (Negative) Influenza Type B (PCR) (Negative) RSV RNA Qual (PCR) (Negative) SARS-CoV-2 RNA (RT-PCR) (Negative) Independent Interpretation I performed an independent interpretation of an: Plain X-Ray (I personally interpreted chest x-ray and agree with radiologist impression) Radiology Impression Discussion of test interpretation with radiology: I have reviewed the radiologist's reading. Radiologist Impression: XR/XR chest 2V IMPRESSION: Unremarkable chest exam Independent Historian Clinical information obtained from an independent historian. History obtained from or confirmed by: EMS External Record Review External record reviewed: Outpatient record Discharge Plan Discharge Clinical Impression: Hyperglycemia due to type 1 diabetes mellitus Patient Disposition: Home, Self-Care Instructions: Diabetic Hyperglycemia (ED) Additional Instructions: Please follow-up with your primary care provider/primary special educator for further management and obtaining a new continuous glucose monitor. Continue checking your blood sugar levels have you have been instructed. You may return back to emergency department any new or worsening symptoms or concerns. Prescriptions: No Action docusate sodium [Stool Softener] 100 mg capsule 100 mg PO BID Qty: 60 0RF famotidine [Pepcid] 20 mg tablet 20 mg PO BEDTIME Qty: 90 3RF pantoprazole 40 mg tablet,delayed release (DR/EC) 40 mg PO DAILY Qty: 90 3RF Rx Instructions: take one tablet half an hour before breakfast cholecalciferol (vitamin D3) 50 mcg (2,000 unit) capsule 50 mcg PO DAILY Qty: 90 3RF dicyclomine 10 mg capsule 10 mg PO TID Qty: 90 2RF insulin lispro [Humalog U-100 Insulin] 100 unit/mL solution 0 - 100 unit subcut DAILY albuterol sulfate [ProAir HFA] 90 mcg/actuation HFA aerosol inhaler 2 puff PO Q4-6H PRN (Reason: Wheezing) escitalopram oxalate 10 mg tablet 1 tab PO QAM hydrocortisone [Proctosol HC] 2.5 % cream with perineal applicator 1 appl NC BID PRN (Reason: hemorrhoids) Qty: 30 3RF lorazepam 0.5 mg tablet 0 mg PO sennosides [Natural Senna Laxative] 8.6 mg tablet 17.2 mg PO BEDTIME Qty: 60 3RF trazodone 50 mg tablet 25 - 50 mg PO BEDTIME PRN hydrocortisone [Proctosol HC] 2.5 % cream with perineal applicator 1 appl NC BID-QID PRN (Reason: hemorrhoids) Qty: 30 2RF Stand Alone Forms: Work/School Release Interventions: ED Discharge Assessment Last Done: 03/29/23 23:30 Discharge Date/Time: 03/29/23 23:30
[2023-03-29 21:50] VITALS: BP 106/63; PULSE 90; RESP 16; O2SAT 100
[2023-03-29 21:59] LABS: Appearance Urine Cloudy; Color Urine Yellow; Glucose Urine UA 250 mg/dL (Negative); Leukocyte Esterase Urine Negative (Negative); Nitrite Urine Negative (Negative); PH >= 9.0 (5.0-9.0); UMIC TRIGGER UACC YES; Urine Blood Large (3+) (Negative); Urine Ketones Trace mg/dL (Negative); Urine Protein 100 (2+) mg/dL (Neg-Trace)
[2023-03-29 22:35] LABS: Bacteria Urine Trace (None Seen); Hyaline Casts Urine 0-2 /LPF (0-2); RBC Urine 0-2 /HPF (0-2); WBC Urine 0-5 /HPF (0-5)
[2023-03-29 23:28] VITALS: BP 122/67; PULSE 100; RESP 14; TEMP 36.8; O2SAT 99
--- NOTE | 2023-03-29 23:28 | PC.NURSE ---
pt partner at bedside. pt ambulatory at discharge. pt calm and cooperative. pt provided with discharge packet pt verbalized understanding of discharge plan
== END 2023-03-29 23:30 | disposition home or self-care (01) ==
PROVIDERS: Nurse Practitioner Family; Emergency Provider Emergency Medicine; PCP General Practice
DX: E10.65 Type 1 diabetes mellitus with hyperglycemia (principal); R05.9 Cough, unspecified; Z96.41 Presence of insulin pump (external) (internal); Z20.822 Contact with and (suspected) exposure to COVID-19; Z20.828 Contact with and (suspected) exposure to other viral communicable diseases
CPT/HCPCS: 0241U; 36415; 71046; 80053; 81001; 81003; 82010; 82803; 82947; 83690; 83735; 85025; 96360; 96361; 99284

== ENCOUNTER 2023-04-10 14:14 | Outpatient (AMB) | payer MEDICAID, SELFPAY ==
--- NOTE | 2023-04-10 14:22 | A.OFFVIS_ITS ---
Intake Vital Signs 04/10/23 14:26 Height 5 ft 1 in Weight 114 lb 10.246 oz BMI 21.7 BP 113/56 L Blood Pressure Location Lt brachial Position Sitting Pulse 101 H Intake Visit Reasons: 3 month follow up Intake Note: Loly presents in the office as a 3 month follow up. CC: She states she still has the same burning in her stomach. No irregular bowel movements. Disaster Recovery Consultant Required: Yes Disaster Recovery Consultant Name: [id number] Caleb Allergies iodine [IODINE] Allergy (Severe, Verified 04/10/23 14:27) HIVES, THROAT SWELLING gluten Allergy (Verified 04/10/23 14:27) Vomiting HPI 3 month follow up HPI Details LAST VISIT: GERD (gastroesophageal reflux disease) Celiac disease Hemorrhoids Chronic idiopathic constipation IBS (irritable bowel syndrome) Anemia Plan Patient will start taking pantoprazole in the morning. She can stop sucralfate at bedtime and start taking famotidine. The importance of avoiding dietary triggers discussed with her again. Stressed the importance of avoiding gluten altogether. Will repeat transglutaminase to see if she has been restricting gluten. Will send her for to do GI panel to rule out any viral component of her having diarrhea. Will also rule out pancreatic insufficiency. Will recheck vitamin B12 and folate as well as vitamin-D level. Will check for H pylori and will treat empirically if positive. Continue taking Proctosol. Patient was also encouraged to do Sitz baths. Patient will return in 3 months, sooner on as needed basis. She is agreeable to this plan and verbalizes understanding of instructions. She was given the opportunity to ask questions and all questions answered. ? Thank you for allowing me to participate in her care Orders Orders Pancreatic Elastase-1 12/27/22 R10.9 Vitamin B12 and Folate 12/26/22 R19.7 Lipase 12/26/22 R10.9 Transglutaminase IgA 12/26/22 R10.9 GI Panel 12/27/22 R19.7 H pylori Ag Stool 12/27/22 K21.9 Vitamin D 25-OH (D2 and D3) 12/26/22 E55.9 Medications New pantoprazole take one tablet half an hour before breakfast 40 mg PO DAILY 30 tabs 2RF K21.9 famotidine (Pepcid) 20 mg PO BEDTIME 30 tabs 3RF K21.9 Refilled hydrocortisone 2.5% (Proctosol HC) 1 appl VA BID-QID PRN 30 grams 2RF hemor rhoids K64.9 Discontinued sucralfate Discontinued Reason: Doctor's Order 1 g PO BID PRN 60 tabs 3RF GI irritation omeprazole Discontinued Reason: Doctor's Order 40 mg PO DAILY 90 caps 3RF K21.9 TODAY'S VISIT: Patient is here today for follow-up and to discuss lab results. We ruled out pancreatic insufficiency, H pylori infection. Patient had increase transglutaminase which proves that she continues to contaminate her food with gluten. Patient was encouraged to be more strict last time. Patient states that for the most part she is doing well with that. Patient feels like the pantoprazole is not helping her. Patient is taking 20 mg of famotidine at bedtime. Continues to have occasional epigastric discomfort in the morning when she wakes up. Patient denies any nausea or vomiting. Reports occasional with dyspepsia and epigastric pain without dysphagia or odynophagia. Patient reports that she is moving her bowels without any issues. Denies any melena, hematochezia, unintentional weight loss or ribbon like stools. [facility] Medical History Type 1 diabetes mellitus Chronic idiopathic constipation Chronic gastric erosion Surgical History H/O hand surgery Hx of esophagogastroduodenoscopy Family History Father No problems noted. Mother Asthma Maternal Grandmother Diabetes HTN (hypertension) Breast cancer Sister Diabetes Social History Household Members: Spouse Alcohol intake: current Alcohol intake frequency: does not drink Patient Tobacco Use Status: Never used Tobacco Review of Systems Const Denies weight gain and Denies weight loss ENT Reports no additional complaints, Denies dysphagia and Denies odynophagia Card Reports no additional complaints Resp Reports no additional complaints GI Reports abdominal pain (Epigastric), Denies belching, Denies melena, Reports bloating, Denies change in bowel habits, Denies dysphagia, Denies excessive flatus, Denies dyspepsia, Reports heartburn, Denies diarrhea, Denies loose stools, Denies nausea, Denies odynophagia and Denies vomiting Reports no additional complaints Musc Reports no additional complaints Neuro Reports no additional complaints Psych Reports no additional complaints Endo Reports no additional complaints Physical Exam Vital Signs: Last Vital Signs Pulse 101 H 04/10/23 14:26 BP 113/56 L 04/10/23 14:26 BMI result Body Mass Index 21.7 Const General: healthy appearing, no acute distress and well developed Nutritional Appearance: well nourished Orientation/consciousness: patient oriented x3 Resp Effort & Inspection: normal respiratory effort, able to speak in complete sentences, no tracheal deviation and symmetric chest movement Auscultation: clear to auscultation bilaterally Cardio Rate: regular rate GI Inspection: Yes normal to inspection and No distended Palpation (GI): Soft to palpation, not firm, nontender and No hepatosplenomegaly present Auscultation: normal bowel sounds General: Yes no CVA tenderness Back/Spine/Pelvis Back: no CVA tenderness Skin General skin exam: elasticity normal, turgor normal and dry skin Neuro General: patient oriented x3 Psych Appearance: grossly normal Mental Status: mental status grossly normal Results Reviewed Results Reviewed: Laboratory Tests 12/21/20 12/26/22 12/26/22 15:25 15:44 15:44 C-Reactive Protein 0.18 Vitamin B12 837 25-OH Vitamin D Total 19 L Stool Pancreat Elastase Tiss Transglutamin IgA 46.7 H 12/27/22 15:01 C-Reactive Protein Vitamin B12 25-OH Vitamin D Total Stool Pancreat Elastase >500 Tiss Transglutamin IgA Assessment & Plan Assessment & Plan (1) Celiac disease: Code(s): K90.0 - Celiac disease (2) GERD (gastroesophageal reflux disease): Code(s): K21.9 - Gastro-esophageal reflux disease without esophagitis Qualifiers: Esophagitis presence: esophagitis presence not specified Qualified Code(s): K21.9 - Gastro-esophageal reflux disease without esophagitis (3) Chronic idiopathic constipation: Code(s): K59.04 - Chronic idiopathic constipation (4) IBS (irritable bowel syndrome): Code(s): K58.9 - Irritable bowel syndrome without diarrhea Qualifiers: Irritable bowel syndrome type: with constipation Qualified Code(s): K58.1 - Irritable bowel syndrome with constipation Plan Continue avoiding gluten. Transglutaminase elevated which tells me that patient occasionally eats gluten. Patient will be started on Nexium, will increase famotidine to 40 mg at bedtime. Discussed with patient avoiding also dietary triggers like spicy food and fried. Avoid eating late at night. Staying upright for minimum 3 hours after meals discussed with patient. Patient will return in 2 months. Will discuss sending her for upper endoscopy. Patient is agreeable to this plan and verbalizes understanding of instructions. She was given the opportunity to ask questions and all questions answered. Thank you for allowing me to participate in her care Medications: New esomeprazole magnesium (Nexium) 40 mg PO DAILY 30 caps 5RF K21.9 - Gastro- esophageal reflux disease without esophagitis famotidine 40 mg PO BEDTIME 30 tabs 3RF K21.9 - Gastro-esophageal reflux disease without esophagitis Discontinued famotidine (Pepcid) Discontinued Reason: Doctor's Order 20 mg PO BEDTIME 90 tabs 3RF K21.9 - Gastro-esophageal reflux disease without esophagitis pantoprazole take one tablet half an hour before breakfast Discontinued Reason: Doctor's Order 40 mg PO DAILY 90 tabs 3RF K21.9 - Gastro-esophageal reflux disease without esophagitis Coding Level of Care Code Est Pt Level 4 (19190) Diagnoses Celiac disease K90.0 Gastroesophageal reflux disease, unspecified whether esophagitis present K21.9 Esophagitis presence: esophagitis presence not specified Chronic idiopathic constipation K59.04 Irritable bowel syndrome with constipation K58.1 Irritable bowel syndrome type: with constipation Time Spent (min) 35 Comment 20 minutes spent with patient and additional 15 minutes spent reviewing her records
[2023-04-10 14:26] VITALS: BP 113/56; PULSE 101; BMI 21.7
== END 2023-04-10 15:54 | disposition home or self-care (01) ==
PROVIDERS: PCP General Practice; Visit Provider Nurse Practitioner Family
DX: K90.0 Celiac disease (principal); K21.9 Gastro-esophageal reflux disease without esophagitis; K58.1 Irritable bowel syndrome with constipation
CPT/HCPCS: 99214

== ENCOUNTER → 2023-04-10 14:14 | Outpatient (BNVA) | payer MEDICAID, SELFPAY | PROVIDERS: PCP General Practice; Visit Provider Nurse Practitioner Family | DX: K90.0 Celiac disease (principal); K21.9 Gastro-esophageal reflux disease without esophagitis; K59.04 Chronic idiopathic constipation; K58.1 Irritable bowel syndrome with constipation | CPT/HCPCS: 99212 ==

== ENCOUNTER → 2023-05-12 14:20 | Outpatient (BNV) | payer MEDICAID, SELFPAY | PROVIDERS: PCP General Practice; Visit Provider Internal Medicine | DX: D50.9 Iron deficiency anemia, unspecified (principal) | CPT/HCPCS: 99204; 99213 ==

== ENCOUNTER 2023-06-02 11:07 | Outpatient (REF) | payer MEDICAID, SELFPAY ==
[2023-06-02 11:38] VITALS: BP 96/59; PULSE 109; RESP 18; TEMP 37.1; O2SAT 100; BMI 19.8
[2023-06-02] MEDS: Iron Sucrose Complex 200 MG in 0.9 % Sodium Chloride 100 ML 440 MG IV (12:00)
== END 2023-06-02 11:08 | disposition home or self-care (01) ==
LOC: HO.MDS 11:07
PROVIDERS: Visit Provider Internal Medicine
DX: D50.9 Iron deficiency anemia, unspecified (principal)
CPT/HCPCS: 96365; J1756

== ENCOUNTER 2023-06-02 13:58 | Outpatient (REF) | payer MEDICAID, SELFPAY ==
--- NOTE | ~2023-06-02 | MM_ITS ---
EXAMINATION: MM DIAGNOSTIC DIGITAL BREAST TOMOSYNTHESIS, BILATERAL US BREAST LIMITED, RIGHT MAMMOGRAPHY: CLINICAL INFORMATION: 38-year-old female, new baseline exam, complaining of palpable lump and pain right breast far outer aspect posterior one third, approximately 8:00. Patient also here for bilateral screening. COMPARISON: Mammography: Prior in 2013 is unavailable and was performed in [place]. This will be a new baseline. TECHNIQUE: Digital breast tomosynthesis is performed in both the craniocaudal and mediolateral oblique views along with computer-aided detection (CAD). Synthesized 2D images are generated from the tomosynthesis. In addition to standard views, full-field right 3-D mediolateral view, and full-field 3-D right exaggerated CC views were obtained. FINDINGS: The breasts are extremely dense, which lowers the sensitivity of mammography (ACR BI-RADS breast composition Category d). There are numerous bilateral rounded and oval circumscribed masses, isodense, and both breasts. These are consistent with benign cysts or fibroadenomas. No suspicious masses, areas of architectural distortion, or suspicious calcifications are identified in either breast. No skin thickening or axillary lymphadenopathy. In the region of palpable concern and pain, upper outer quadrant right breast far posterior, there is a suggestion of an oval mass, probably circumscribed but partially obscured by dense breast tissue, and will be evaluated with ultrasound. This may be a cyst or fibroadenoma. ULTRASOUND: CLINICAL INFORMATION: As above. COMPARISON: None TECHNIQUE: Targeted sonographic evaluation was performed using a high frequency linear transducer. Right breast was interrogated in the region of clinical concern, 7:00 to 11:00 axis to include the palpable region. Selected archived documentation. FINDINGS: RIGHT BREAST: There is extremely dense fibrocystic tissue identified. Within the 8:00 axis, 9 cm from the nipple, there is an oval circumscribed hypoechoic avascular mass with good through transmission measuring 1.1 x 1.4 x 0.5 cm, highly suggestive of a fibroadenoma. Because of the size, ultrasound-guided biopsy is recommended for confirmation. Elsewhere, and the local area scanned, only extremely dense fibrocystic change is identified. MM/MM tomosynthesis diagnostic BI IMPRESSION: There are no findings in either breast suspicious for malignancy. Breast tissue is extremely dense fibrocystic in both breasts. In the region of palpable concern 8:00 axis right breast, there is a 1.1 x 1.4 x 0.5 cm oval circumscribed mass highly likely a fibroadenoma or variant. Due to the size, ultrasound-guided biopsy recommended for confirmation. Findings and recommendations were discussed with the patient in detail. OVERALL ASSESSMENT: Mammography: BI-RADS 4 - Suspicious finding Ultrasound: BI-RADS 4 - Suspicious finding RECOMMENDATION: Biopsy recommended This patient's information was entered into a reminder system with a target due date for their next mammogram.
== END 2023-06-02 13:59 | disposition home or self-care (01) ==
LOC: HO.MAMMO 13:58
PROVIDERS: PCP General Practice; Visit Provider General Practice
DX: N64.4 Mastodynia (principal)
CPT/HCPCS: 76642; 77062; 77066

== ENCOUNTER → 2023-06-02 14:30 | Outpatient (BNV) | payer MEDICAID, SELFPAY | PROVIDERS: PCP General Practice; Visit Provider Radiology Diagnostic Radiology | DX: R92.8 Other abnormal and inconclusive findings on diagnostic imaging of breast (principal) | CPT/HCPCS: 76642; 77062; 77066 ==

== ENCOUNTER 2023-06-06 08:18 | Outpatient (AMB) | payer MEDICAID, SELFPAY ==
--- NOTE | 2023-06-06 08:25 | MHC.OFFVIS ---
Intake Vital Signs 06/06/23 08:30 Height 5 ft 1 in Weight 111 lb BMI 21.0 BP 96/67 Blood Pressure Location Lt brachial Position Sitting Pulse 107 H Intake Visit Reasons: US guided Bx RT breast 8 o'clock nodule Intake Note: admits to pain and discomfort on the right breast specially during the menstrual cycle, had bx in the past left breast (benign), hx of breast cancer (maternal grandmother), denies redness, swelling, discoloration, or other breast concerns, no to breast feeding Dispute Coordinator Required: Yes Dispute Coordinator Language: Pilot Captain Name: Ginger UGARTE Information Interpreted: non-clinical & clinical Accompanied by: Self / Same As Patient Allergies iodine [IODINE] Allergy (Severe, Verified 06/06/23 08:31) HIVES, THROAT SWELLING gluten Allergy (Verified 06/06/23 08:31) Vomiting Medication List - Last Reconciled 06/06/23 by Rodrick Devi MD albuterol sulfate 90 mcg/actuation (ProAir HFA) 2 puffs PO Q4-6H PRN blood sugar diagnostic (Accu-Chek Guide test strips) As directed dicyclomine 10 mg PO TID docusate sodium (Stool Softener) 100 mg PO BID esomeprazole magnesium (Nexium) 40 mg PO DAILY famotidine 40 mg PO BEDTIME hydrocortisone 2.5% (Proctosol HC) 1 appl [place] BID PRN hydrocortisone 2.5% (Proctosol HC) 1 appl [place] BID-QID PRN hydroxyzine HCl 10 mg PO BEDTIME PRN insulin lispro (Humalog U-100 Insulin) 0 - 100 units subcut DAILY lidocaine 5% 1 patch topical DAILY lorazepam 0.5 mg PO DAILY HPI HPI Comments History of Present Illness Details 38-year-old female patient with a palpable mass located in the right breast at the upper outer quadrant. She 1st noted the lump approximately 2 years ago associated with some pain. The lump has gradually increased in size and discomfort. Recent workup with mammogram and ultrasound reveals a smooth solid density in the 8 o'clock position corresponding to the palpable mass. This was felt to be possibly a fibroadenoma. An ultrasound-guided core biopsy was recommended (BI-RADS 4). She is scheduled for this procedure later today at the [facility]. She reports a previous left breast biopsy approximately 16 years ago which was benign. Her family history is significant for a maternal grandmother with breast cancer in her mid 50s. She is . [facility] Medical History Type 1 diabetes mellitus Chronic idiopathic constipation Chronic gastric erosion Surgical History H/O hand surgery Hx of esophagogastroduodenoscopy Family History Father No problems noted. Mother Asthma Maternal Grandmother Diabetes HTN (hypertension) Breast cancer Sister Diabetes Social History Household Members: Spouse Alcohol intake: current Alcohol intake frequency: does not drink Patient Tobacco Use Status: Never used Tobacco Female Reproductive History Menstrual Age of Menarche: 13 Date of last menstrual period: 06/06/23 Total pregnancies: 1 Number of Living Children: 0 Review of Systems Const All systems reviewed & are unremarkable except as noted in HPI and below Denies nipple discharge Skin/Breast Reports breast pain, Reports breast mass and Denies nipple discharge Physical Exam Vital Signs: Last Vital Signs Pulse 107 H 06/06/23 08:30 BP 96/67 06/06/23 08:30 BMI result Body Mass Index 21.0 Const General: cooperative and no acute distress Nutritional Appearance: well nourished Orientation/consciousness: patient oriented x3 Limitations: no limitations HEENT Head: Yes normocephalic and Yes atraumatic Ears: hearing grossly normal bilaterally Chest Other: Left breast: Well-healed incision in the margin of the areola between 10 and 02:00 o'clock. No other skin change, no nipple retraction, no nipple discharge, no palpable mass, no enlarged lymph nodes. Right breast: No skin change, no nipple retraction, no nipple discharge, palpable mass in the 8 o'clock position, mobile within the breast tissue with a soft consistency, most suggestive of a fibroadenoma. No enlarged lymph nodes Chest/axillae images: 1. Palpable mass 8 o'clock position right breast 2. Well-healed incision left breast at the margin of the areola as noted Resp Effort & Inspection: normal respiratory effort, no audible wheezes, no cough and no respiratory distress Cardio Jugular venous distension: no JVD GI Inspection: Yes normal to inspection Skin Other: Warm, dry, no rash Neuro General: patient oriented x3 Extrem General: Yes no clubbing, cyanosis or edema Assessment & Plan Assessment & Plan (1) Abnormal ultrasound of breast: Code(s): R92.8 - Other abnormal and inconclusive findings on diagnostic imaging of breast (2) Breast mass, right: Code(s): N63.10 - Unspecified lump in the right breast, unspecified quadrant Qualifiers: Breast mass location: lower outer quadrant Qualified Code(s): N63.13 - Unspecified lump in the right breast, lower outer quadrant Plan 38-year-old female patient presenting with a self identified palpable mass in the right breast at the lower outer quadrant which has gradually increased in size, causing some discomfort with palpation. She has a previous history of a benign left breast lump removed 16 years ago. Her family history is significant for a paternal grandmother with breast cancer. On examination she does indeed have a soft palpable mass corresponding to the ultrasound findings. She is scheduled for an ultrasound-guided core biopsy later today of the right breast. I recommended returning in 1 week for review of the pathology results and discussion of treatment options. She is indicated that she would prefer to have the lump removed even if benign. We will discuss this further next week. Orders: Orders US breast ndl core biopsy RT Today N63.10 - Unspecified lump in the right breast, unspecified quadrant, R92.8 - Other abnormal and inconclusive findings on diagnostic imaging of breast Coding Level of Care Code New Pt Level 4 (10293) Diagnoses Abnormal ultrasound of breast R92.8 Mass of lower outer quadrant of right breast N63.13 Breast mass location: lower outer quadrant
[2023-06-06 08:30] VITALS: BP 96/67; PULSE 107; BMI 21.0
== END 2023-06-06 08:43 | disposition home or self-care (01) ==
PROVIDERS: PCP General Practice; Visit Provider Surgery
DX: R92.8 Other abnormal and inconclusive findings on diagnostic imaging of breast (principal); N63.13 Unspecified lump in the right breast, lower outer quadrant
CPT/HCPCS: 99204

== ENCOUNTER 2023-06-06 08:48 | Outpatient (REF) | payer MEDICAID, SELFPAY ==
--- NOTE | ~2023-06-06 | US_ITS ---
PROCEDURE: US GUIDED BREAST BIOPSY, RIGHT CLINICAL INFORMATION: 1.4 cm oval hypoechoic palpable mass right breast far medially o'clock axis, 9 cm from the nipple, recommended for biopsy, likely fibroadenoma. COMPARISON: Diagnostic ultrasound and mammography 06/02/2023. PROCEDURAL DETAILS: The details of the procedure, as well as the risks, benefits, and alternatives to the procedure were explained to the patient in detail and all of her questions were answered, after which written informed consent was obtained. Site and side were confirmed. Prior to the procedure, sonography revealed a oval hypoechoic circumscribed 1.4 x 0.5 x 1.1 cm mass with good through transmission at the 8:00 axis right breast, 9 cm from the nipple.. A time-out was performed, the lesion intended for biopsy was targeted, and the skin of the right breast was then marked, prepped and draped in the usual sterile fashion. Using sonographic guidance, sterile technique, and 1% lidocaine without epinephrine for local anesthesia, multiple core biopsies were obtained through the targeted area with a 14G spring loaded Global Axcessera core biopsy device. There was real-time confirmation of appropriate needle passage. Sampling was documented. At the completion of tissue sampling, a single butterfly-shaped metallic clip was deposited at the biopsy site. There was no evidence of immediate complication. SPECIMEN: 3 well formed core samples were obtained. DIGITAL POST-PROCEDURE MAMMOGRAPHY: Breast density: The tissue is extremely dense, which lowers the sensitivity of mammography. BI-RADS version 5, category D. There are no new mammographic findings demonstrated. The postprocedure 2-view direct digital mammogram reveals satisfactory and accurate positioning of the biopsy clip on the exaggerated CC projection. Clip could not be visualized on the right MLO projection due to the extreme medial positioning. On sonography, clip was well-positioned. No hematoma present. The patient tolerated the procedure well and, after assuring adequate hemostasis, was discharged in good condition after reviewing postbiopsy breast care instructions. Final pathology results are pending. US/US breast ndl core biopsy RT IMPRESSION: 1. No immediate complication from ultrasound-guided percutaneous biopsy right mass at 8:00. 2. Ultrasound was used to localize and guide marker clip placement. 3. The right exaggerated CC direct digital postprocedure mammogram along with the documented sonography placement reveals satisfactory positioning of the biopsy clip. 4. Final pathology results are pending. A separate report with final recommendations will be issued once these results are made available.
[2023-06-06] MEDS: Lidocaine HCl 1 % 20 ML VIAL 9 ML SUBCUT (10:15)
[2023-06-06] MEDS: Sodium Bicarbonate 8.4% 50 MEQ/50 ML VIAL SUBCUT (10:16)
== END 2023-06-06 08:49 | disposition home or self-care (01) ==
LOC: HO.MAMMO 08:48
PROVIDERS: PCP General Practice; Visit Provider Surgery
DX: R92.8 Other abnormal and inconclusive findings on diagnostic imaging of breast (principal); N63.13 Unspecified lump in the right breast, lower outer quadrant
CPT/HCPCS: 19083; 77061; 77065; 88305; 99202; A4648; C1894

== ENCOUNTER → 2023-06-06 10:00 | Outpatient (BNV) | payer MEDICAID, SELFPAY | PROVIDERS: PCP General Practice; Visit Provider Radiology Diagnostic Radiology | DX: N63.13 Unspecified lump in the right breast, lower outer quadrant (principal) | CPT/HCPCS: 19083; 77061; 77065 ==

== ENCOUNTER 2023-06-09 12:21 | Outpatient (REF) | payer MEDICAID, SELFPAY ==
[2023-06-09 12:27] VITALS: BP 95/67; PULSE 93; RESP 18; TEMP 36.4
[2023-06-09] MEDS: Iron Sucrose Complex 200 MG in 0.9 % Sodium Chloride 100 ML 440 MG IV (12:47)
== END 2023-06-09 12:22 | disposition home or self-care (01) ==
LOC: HO.MDS 12:21
PROVIDERS: Visit Provider Internal Medicine
DX: D50.9 Iron deficiency anemia, unspecified (principal)
CPT/HCPCS: 96365; J1756

== ENCOUNTER 2023-06-13 09:19 | Outpatient (AMB) | payer MEDICAID, SELFPAY ==
--- NOTE | 2023-06-13 09:32 | MHC.OFFVIS ---
Intake Vital Signs 06/13/23 09:42 Height 5 ft 1 in Weight 113 lb BMI 21.3 BP 100/60 Blood Pressure Location Lt brachial Position Sitting Pulse 80 Intake Visit Reasons: S/p US guided Bx RT breast 8 o'clock nodule Intake Note: Patient is seen in office for ultrasound guided biopsy results, right breast 8 o'clock nodule. Pt c/o: denies any concerns at the time of visit, would like to have the mass removed First Line Supervisor Required: Yes First Line Supervisor Language: Detasseler Name: Ginger UGARTE Information Interpreted: non-clinical & clinical Professor Of Apologetics: Professor Of Apologetics Present Accompanied by: Self / Same As Patient Allergies iodine [IODINE] Allergy (Severe, Verified 06/13/23 09:45) HIVES, THROAT SWELLING gluten Allergy (Verified 06/13/23 09:45) Vomiting Medication List - Last Reconciled 06/13/23 by Rodrick Devi MD albuterol sulfate 90 mcg/actuation (ProAir HFA) 2 puffs PO Q4-6H PRN blood sugar diagnostic (Accu-Chek Guide test strips) As directed dicyclomine 10 mg PO TID docusate sodium (Stool Softener) 100 mg PO BID esomeprazole magnesium (Nexium) 40 mg PO DAILY famotidine 40 mg PO BEDTIME hydrocortisone 2.5% (Proctosol HC) 1 appl [place] BID PRN hydrocortisone 2.5% (Proctosol HC) 1 appl [place] BID-QID PRN hydroxyzine HCl 10 mg PO BEDTIME PRN insulin lispro (Humalog U-100 Insulin) 0 - 100 units subcut DAILY lidocaine 5% 1 patch topical DAILY lorazepam 0.5 mg PO DAILY HPI HPI Comments History of Present Illness Details 38-year-old female patient with a palpable mass located in the right breast at the upper outer quadrant. She 1st noted the lump approximately 2 years ago associated with some pain. The lump has gradually increased in size and discomfort. Recent workup with mammogram and ultrasound reveals a smooth solid density in the 8 o'clock position corresponding to the palpable mass. This was felt to be possibly a fibroadenoma. An ultrasound-guided core biopsy was recommended (BI-RADS 4). She is scheduled for this procedure later today at the [facility]. She reports a previous left breast biopsy approximately 16 years ago which was benign. Her family history is significant for a maternal grandmother with breast cancer in her mid 50s. She is . She underwent right breast needle core biopsy 1 week ago. Pathology confirmed fibroadenoma. The patient is requesting excision of this palpable mass. [facility] Medical History Type 1 diabetes mellitus Chronic idiopathic constipation Chronic gastric erosion Surgical History H/O hand surgery Hx of esophagogastroduodenoscopy Family History Father No problems noted. Mother Asthma Maternal Grandmother Diabetes HTN (hypertension) Breast cancer Sister Diabetes Social History Household Members: Spouse Alcohol intake: current Alcohol intake frequency: does not drink Patient Tobacco Use Status: Never used Tobacco Female Reproductive History Menstrual Age of Menarche: 13 Review of Systems Const All systems reviewed & are unremarkable except as noted in HPI and below Denies nipple discharge Skin/Breast Reports breast pain, Reports breast mass and Denies nipple discharge Physical Exam Vital Signs: Last Vital Signs Pulse 80 06/13/23 09:42 BP 100/60 06/13/23 09:42 BMI result Body Mass Index 21.3 Const General: cooperative and no acute distress Nutritional Appearance: well nourished Orientation/consciousness: patient oriented x3 Limitations: no limitations HEENT Head: Yes normocephalic and Yes atraumatic Ears: hearing grossly normal bilaterally Chest Other: Left breast: Well-healed incision in the margin of the areola between 10 and 02:00 o'clock. No other skin change, no nipple retraction, no nipple discharge, no palpable mass, no enlarged lymph nodes. Right breast: No skin change, no nipple retraction, no nipple discharge, palpable mass in the 8 o'clock position, mobile within the breast tissue with a soft consistency, most suggestive of a fibroadenoma. No enlarged lymph nodes Chest/axillae images: 1. Palpable mass located in the upper outer quadrant right breast Resp Effort & Inspection: normal respiratory effort, no audible wheezes, no cough and no respiratory distress Cardio Jugular venous distension: no JVD GI Inspection: Yes normal to inspection Skin Other: Warm, dry, no rash Neuro General: patient oriented x3 Extrem General: Yes no clubbing, cyanosis or edema Assessment & Plan Assessment & Plan (1) Fibroadenoma of right breast: Code(s): D24.1 - Benign neoplasm of right breast Plan 38-year-old female patient presenting with a palpable mass in the right breast, biopsy-proven fibroadenoma. Patient has requested excision of this symptomatic mass which can be performed as a short-stay surgery. After discussion of the procedure, risks, and alternatives, she consents to a right breast lumpectomy. Coding Level of Care Code Est Pt Level 4 (29643) Diagnoses Fibroadenoma of right breast D24.1
[2023-06-13 09:42] VITALS: BP 100/60; PULSE 80; BMI 21.3
== END 2023-06-13 09:50 | disposition home or self-care (01) ==
PROVIDERS: PCP General Practice; Visit Provider Surgery
DX: D24.1 Benign neoplasm of right breast (principal)
CPT/HCPCS: 99214

== ENCOUNTER → 2023-06-13 09:19 | Outpatient (BNVA) | payer MEDICAID, SELFPAY | PROVIDERS: PCP General Practice; Visit Provider Surgery | DX: D24.1 Benign neoplasm of right breast (principal) | CPT/HCPCS: 99212 ==

== ENCOUNTER 2023-06-14 10:24 | Outpatient (REF) | payer MEDICAID, SELFPAY ==
[2023-06-14 10:26] VITALS: BP 93/52; PULSE 88; RESP 18; TEMP 36.3; O2SAT 100
[2023-06-14] MEDS: Iron Sucrose Complex 200 MG in 0.9 % Sodium Chloride 100 ML 440 MG IV (10:39)
== END 2023-06-14 10:25 | disposition home or self-care (01) ==
LOC: HO.MDS 10:24
PROVIDERS: Visit Provider Internal Medicine
DX: D50.9 Iron deficiency anemia, unspecified (principal)
CPT/HCPCS: 96365; J1756

== ENCOUNTER 2023-06-26 09:22 | Day surgery (SDC) | payer MEDICAID, SELFPAY ==
[2023-06-22 09:59] VITALS: BMI 21.3
--- NOTE | 2023-06-23 10:14 | P.CONAN_ITS ---
Documented by User: Cassandra Briscoe NP 06/23/23 10:16 HPI - Anesthesia Eval Consult details Narrative: 38yo F for Right Breast Lumpectomy PMFSH Active Problems Active Problems: All Active Problems (Updated 06/22/23 @ 10:19 by Jessica Perez RN) Fibroadenoma of right breast (Acute) Abnormal ultrasound of breast (Acute) Breast mass, right (Acute) Anemia (Acute) Celiac disease (Acute) Diverticulitis (Acute) Hemorrhoids (Acute) GERD (gastroesophageal reflux disease) (Acute) Chronic idiopathic constipation (Acute) IBS (irritable bowel syndrome) (Acute) Chronic gastric erosion (Acute) Past Medical History Medical History (Updated 06/26/23 @ 09:44 by Maggy Ramos RN) History of celiac disease Asthma GERD (gastroesophageal reflux disease) Type 1 diabetes mellitus Chronic idiopathic constipation Chronic gastric erosion Family History Family History Father No problems noted. Mother Asthma Maternal Grandmother Diabetes HTN (hypertension) Breast cancer Sister Diabetes Family history of problems with anesthesia: No Surgical History Surgical History History of right oophorectomy H/O hand surgery Hx of esophagogastroduodenoscopy History of Problems with Anesthesia: No Social History Social History Household Members: Spouse Alcohol intake: current Alcohol intake frequency: does not drink Patient Tobacco Use Status: Never used Tobacco Meds Allergies Allergy/AdvReac Type Severity Reaction Status Date / Time iodine [IODINE] Allergy Severe HIVES, Verified 06/26/23 09:44 THROAT SWELLING gluten Allergy Intermediate Vomiting Verified 06/26/23 09:44 Home Medications Medication Instructions Recorded Confirmed Last Taken Type lorazepam 0.5 mg tablet 0.5 mg PO DAILY PRN Anxiety 01/20/21 06/26/23 Unknown History albuterol sulfate 90 mcg/actuation 2 puff PO Q4-6H PRN Wheezing 10/19/21 06/26/23 Unknown History aerosol inhaler (ProAir HFA) insulin lispro 100 unit/mL 0 - 100 unit subcut DAILY 10/19/21 06/26/23 Unknown History subcutaneous solution (Humalog U-100 Insulin) blood sugar diagnostic (Accu-Chek #10 ea 04/10/23 06/26/23 Unknown History Guide test strips) hydroxyzine HCl 10 mg tablet 10 mg PO BEDTIME PRN anxiety 04/10/23 06/26/23 Unknown History lidocaine 5 % topical patch 1 patch topical DAILY 04/10/23 06/26/23 Unknown History ondansetron 4 mg disintegrating 4 mg PO Q8H PRN Nausea 06/26/23 06/26/23 Unknown History tablet Exam Height,Weight and Vital Signs: Height 5 ft 1 in Weight 51.256 kg Pertinent Lab Results Pertinent Lab Results: Laboratory Tests 03/29/23 05/12/23 18:45 15:23 WBC 6.5 Hgb 9.8 L Hct 30.1 L Plt Count 305 Sodium 141 Potassium 4.0 Chloride 108 Carbon Dioxide 27 BUN 16 Creatinine 1.14 Assessment and Plan Assessment Anesthesia Assessment: Chart Reviewed Final Anesthetic Review Family History of Problems with Anesthesia: No History of Problems with Anesthesia: No Documented by User: Tariq Hardin MD 06/26/23 10:15 [facility] Past Medical History Medical History (Updated 06/26/23 @ 09:44 by Maggy Ramos RN) History of celiac disease Asthma GERD (gastroesophageal reflux disease) Type 1 diabetes mellitus Chronic idiopathic constipation Chronic gastric erosion Family History Family History Father No problems noted. Mother Asthma Maternal Grandmother Diabetes HTN (hypertension) Breast cancer Sister Diabetes Surgical History Surgical History History of right oophorectomy H/O hand surgery Hx of esophagogastroduodenoscopy Social History Social History Household Members: Spouse Alcohol intake: current Alcohol intake frequency: does not drink Patient Tobacco Use Status: Never used Tobacco Meds Allergies Allergy/AdvReac Type Severity Reaction Status Date / Time iodine [IODINE] Allergy Severe HIVES, Verified 06/26/23 09:44 THROAT SWELLING gluten Allergy Intermediate Vomiting Verified 06/26/23 09:44 Home Medications Medication Instructions Recorded Confirmed Last Taken Type lorazepam 0.5 mg tablet 0.5 mg PO DAILY PRN Anxiety 01/20/21 06/26/23 Unknown History albuterol sulfate 90 mcg/actuation 2 puff PO Q4-6H PRN Wheezing 10/19/21 06/26/23 Unknown History aerosol inhaler (ProAir HFA) insulin lispro 100 unit/mL 0 - 100 unit subcut DAILY 10/19/21 06/26/23 Unknown History subcutaneous solution (Humalog U-100 Insulin) blood sugar diagnostic (Accu-Chek #10 ea 04/10/23 06/26/23 Unknown History Guide test strips) hydroxyzine HCl 10 mg tablet 10 mg PO BEDTIME PRN anxiety 04/10/23 06/26/23 Unknown History lidocaine 5 % topical patch 1 patch topical DAILY 04/10/23 06/26/23 Unknown History ondansetron 4 mg disintegrating 4 mg PO Q8H PRN Nausea 06/26/23 06/26/23 Unknown History tablet Exam Airway Mallampati Class: II TM Dist: >3cm Neck ROM: Full Partial: Lower Loose/Missing/Broken Teeth: No Heart: rrr Lungs: cta b/l Assessment and Plan Final Anesthetic Review NPO: Yes ASA Class: II Final Preanesthetic Review: No Changes in Pt Med Stat, Meds/Allgs Chart Reviewed, Consent Obtained/Reviewed and Anes Risks/Benef Reviewed Patient Risk: Intermediate Procedure Risk: Low Anesthetic Plan Anesthetic Plan: GA Disposition: Standard PACU
[2023-06-26] VITALS (9 sets, daily range): BP systolic 100–118; BP diastolic 54–68; PULSE 83–112; RESP 14–17; TEMP 36.2–36.8; O2SAT 96–100; BMI 22.5
--- NOTE | ~2023-06-26 | MM_ITS ---
EXAMINATION: MM SPECIMEN X-RAY BREAST, RIGHT BREAST CLINICAL INDICATION: Excision of benign fibroadenoma right breast. COMPARISON: 06/06/2023, 06/02/2023. TECHNIQUE: Single radiograph of the excised breast tissue is performed using digital mammography. FINDINGS: The specimen demonstrates presence of the butterfly-shaped biopsy clip slightly off-center, with an oval shaped mass oriented to one side of the specimen, presumably the fibroadenoma in question. No RFID tag was placed due to the palpable nature of the mass. MM/MM surgical specimen IMPRESSION: Removal of butterfly-shaped biopsy clip and oval mass consistent with known fibroadenoma. Results were called to Dr. Rodrick Devi in the operating room at the time of image receipt.
[2023-06-26 09:52] LABS: UPreg QC Valid YES; Urine Pregnancy NEGATIVE (NEGATIVE)
--- NOTE | 2023-06-26 10:09 | MHC.SHP ---
Pre-Procedural Eval Section A - 24 Hr Update-Section A only Date of Service: 06/26/23 The patient is an INPATIENT: No Changes since office visit: Yes Patient answered all questions; No Cold of Flu in the past 2 weeks, No New Medical Problems and No Changes in Medication The patient has been examined within 24 hours of the surgical procedure. The History & Physical has been completed within 30 days and I have reviewed it.: Yes Section B - Complete if H&P > 30 days Chief Complaint: Benign neoplasm of right breast Allergies: Allergies Allergy/AdvReac Type Severity Reaction Status Date / Time iodine [IODINE] Allergy Severe HIVES, Verified 06/26/23 09:44 THROAT SWELLING gluten Allergy Intermediate Vomiting Verified 06/26/23 09:44 Plan Diagnosis/Plan: Unchanged I have reviewed the history and physical and performed a pertinent physical examination on my patient. No changes have occurred unless specified. Time Spent With Patient Time: Total time managing care of this patient today ____ minutes.
[2023-06-26] MEDS: Lactated Ringers 1,000 ML 100 ML IVCONT (10:25)
[2023-06-26] MEDS: Dextrose 5 % 250 ML IV (10:26)
--- NOTE | 2023-06-26 10:29 | W.PM.OPN ---
Operative Note Operative Note Date of Service: 06/26/23 Narrative: Preoperative diagnosis: Fibroadenoma right breast 08:00 o'clock Postoperative diagnosis: Same Procedure: Right breast lumpectomy Surgeon: Rodrick Devi MD Hand Spring Repairer: Sandra Manning PA-C Anesthesia: General LMA Indications for procedure: 38-year-old female patient presenting with a tender lump in the right breast at the 8 o'clock position noted on self examination and confirmed by mammogram and ultrasound. Previous ultrasound-guided core biopsy revealed a benign fibroadenoma. Patient has requested excision of this painful lump. Operative findings: Small palpable lump located deep in the right breast at the 8 o'clock position with a marking clip within the region of the density. Specimen x-ray confirmed a spiral marking clip within the specimen. Specimen: Right breast lumpectomy Estimated blood loss: Less than 2 mL Complications: None Procedure details: Patient was brought to the OR and placed in a supine position. After administering general anesthesia patient's right breast was prepped with ChloraPrep and draped in a sterile fashion. A surgical time-out was called the consent confirmed. Patient received preoperative antibiotics and Venodyne boots were in place. Local anesthesia was then infiltrated in the lower outer quadrant in a curvilinear fashion. A curvilinear incision was then made directly over the palpable lump. This was carried out through subcutaneous tissue. Superior and inferior skin flaps were then created over the breast tissue. Dissection was continued down into the breast tissue towards the palpable lump. This was then grasped with an Allis clamp and brought up through the incision. Electrocautery was then used to dissect the specimen circumferentially. A marking clip was noted in the margin of the specimen. Specimen was then x-rayed using the trident. This confirmed the marking clip within the specimen. Specimen was then sent to pathology for further examination. Wounds were irrigated with saline solution and suctioned dry. Wounds were checked for hemostasis. Deep breast tissue and dermis were then reapproximated using interrupted 3-0 Polysorb sutures. Skin was closed using a running subcuticular 4-0 Polysorb suture. Steri-Strips, 2 x 2 gauze and Tegaderm were then applied. The patient tolerated the procedure well. Sponge, instrument, and needle counts were reported as correct. The patient was transferred to PACU in stable condition.
[2023-06-26 10:38] LABS: Glucose, Whole Blood 98 mg/dL (60-115)
[2023-06-26 10:38] LABS: Glucose, Whole Blood 46 mg/dL (60-115)
[2023-06-26 11:26] LABS: Glucose, Whole Blood 118 mg/dL (60-115)
[2023-06-26] MEDS: HYDROmorphone HCl 0.5 MG/0.5 ML SYRINGE IVPUSH (11:37)
[2023-06-26 12:45] LABS: Glucose, Whole Blood 286 mg/dL (60-115)
[2023-06-26] MEDS: Ondansetron ODT 4 MG TAB.RAPDIS TRANSLINGU (12:51)
== END 2023-06-26 13:23 | disposition home or self-care (01) ==
PROVIDERS: Nurse Practitioner; PCP General Practice; Visit Provider Surgery
PROC: (CPT 19301; principal; 2023-06-26 11:00)
DX: D24.1 Benign neoplasm of right breast (principal); E10.9 Type 1 diabetes mellitus without complications; Z79.4 Long term (current) use of insulin; K25.9 Gastric ulcer, unspecified as acute or chronic, without hemorrhage or perforation; J45.909 Unspecified asthma, uncomplicated; Z79.899 Other long term (current) drug therapy; Z91.041 Radiographic dye allergy status; Z98.890 Other specified postprocedural states
CPT/HCPCS: 19301; 81025; 82947; 88305; 88307; J0131; J0690; J1170; J2405; J2704; J2795; J3010

== ENCOUNTER → 2023-06-26 09:22 | Outpatient (BNV) | payer MEDICAID, SELFPAY | PROVIDERS: PCP General Practice; Visit Provider Surgery | DX: D24.1 Benign neoplasm of right breast (principal) | CPT/HCPCS: 19120 ==

== ENCOUNTER 2023-06-29 11:32 | Outpatient (REF) | payer MEDICAID, SELFPAY ==
[2023-06-29 11:40] VITALS: BP 98/60; PULSE 97; RESP 18; TEMP 36.1
[2023-06-29] MEDS: Iron Sucrose Complex 200 MG in 0.9 % Sodium Chloride 100 ML 440 MG IV (11:55)
[2023-06-29 12:15] VITALS: BP 126/64; PULSE 69; RESP 18
== END 2023-06-29 11:33 | disposition home or self-care (01) ==
LOC: HO.MDS 11:32
PROVIDERS: Visit Provider Internal Medicine
DX: D50.9 Iron deficiency anemia, unspecified (principal)
CPT/HCPCS: 96365; J1756

== ENCOUNTER 2023-07-07 11:29 | Outpatient (AMB) | payer MEDICAID, SELFPAY ==
--- NOTE | 2023-07-07 11:30 | A.OFFVIS_ITS ---
Intake Vital Signs 3 07/07/23 11:40 Height 5 ft 1 in Weight 117 lb BMI 22.1 BP 119/64 Blood Pressure Location Lt brachial Position Sitting Intake Visit Reasons: S/P Rt breast lumpectomy Intake Note: Patient is seen in office for post op assessment post right breast lumpectomy. Pt c/o: denies any concerns healing as expected Broodmare Foreman Required: Yes Broodmare Foreman Language: Final Block Press Operator Name: Ginger UGARTE Information Interpreted: non-clinical & clinical Mixer Operator Hot Metal: Mixer Operator Hot Metal Present Accompanied by: Self / Same As Patient Allergies iodine [IODINE] Allergy (Severe, Verified 07/07/23 11:40) HIVES, THROAT SWELLING gluten Allergy (Intermediate, Verified 07/07/23 11:40) Vomiting Medication List - Last Reconciled 07/07/23 by Rodrick Devi MD albuterol sulfate 90 mcg/actuation (ProAir HFA) 2 puffs PO Q4-6H PRN blood sugar diagnostic (Accu-Chek Guide test strips) As directed dicyclomine 10 mg PO TID docusate sodium (Stool Softener) 100 mg PO BID esomeprazole magnesium (Nexium) 40 mg PO DAILY famotidine 40 mg PO BEDTIME hydrocortisone 2.5% (Proctosol HC) 1 appl VT BID-QID PRN hydroxyzine HCl 10 mg PO BEDTIME PRN insulin lispro (Humalog U-100 Insulin) 0 - 100 units subcut DAILY lidocaine 5% 1 patch topical DAILY lorazepam 0.5 mg PO DAILY PRN ondansetron 4 mg PO Q8H PRN HPI HPI Comments 2 History of Present Illness0 Details 38-year-old female patient returning 1 w tribe following recent right breast lumpectomy. She tolerated the procedure well and denies any ongoing breast symptoms. Pathology confirmed a fibroadenoma. She feels well and denies any new concerns. [facility] [place] Medical History (Updated 07/05/23 @ 10:40 by Georgina Bronson MD) History of celiac disease Asthma GERD (gastroesophageal reflux disease) Type 1 diabetes mellitus Chronic idiopathic constipation Chronic gastric erosion Surgical History (Updated 07/06/23 @ 11:43 by TORITO Kaiser) History of lumpectomy of right breast (06/26/23) History of right oophorectomy H/O hand surgery Hx of esophagogastroduodenoscopy Family History Father No problems noted. Mother Asthma Maternal Grandmother Diabetes HTN (hypertension) Breast cancer Sister Diabetes Social History Household Members: Spouse Alcohol intake: current Alcohol intake frequency: does not drink Patient Tobacco Use Status: Never used Tobacco Female Reproductive History Menstrual Age of Menarche: 13 Physical Exam Const General: comfortable Nutritional Appearance: well nourished Chest Other: Incision in the upper outer quadrant of the right breast is clean, dry, and intact without hematoma or seroma. Chest/axillae images: 2 1. Incision right breast upper outer quadrant. Resp Effort & Inspection: normal respiratory effort Assessment & Plan Assessment & Plan (1) Fibroadenoma of right breast: Code(s): D24.1 - Benign neoplasm of right breast Plan 38-year-old female patient status post right breast lumpectomy for fibroadenoma. She tolerated the procedure well the wounds are healing nicely. She should follow up as needed. Coding Level of Care Code Global (41626) Diagnoses Fibroadenoma of right breast D24.1
[2023-07-07 11:40] VITALS: BP 119/64; BMI 22.1
== END 2023-07-07 11:45 | disposition home or self-care (01) ==
PROVIDERS: PCP General Practice; Visit Provider Surgery
DX: D24.1 Benign neoplasm of right breast (principal)
CPT/HCPCS: 99024

== ENCOUNTER → 2023-07-07 11:29 | Outpatient (BNVA) | payer MEDICAID, SELFPAY | PROVIDERS: PCP General Practice; Visit Provider Surgery | DX: D24.1 Benign neoplasm of right breast (principal) | CPT/HCPCS: 99212 ==

== ENCOUNTER 2023-07-14 09:26 | Outpatient (RCR) | payer MEDICAID, SELFPAY ==
[2023-07-14 09:27] VITALS: BP 99/62; PULSE 100; RESP 16; TEMP 36.6; O2SAT 98
[2023-07-14] MEDS: Iron Sucrose Complex 200 MG in 0.9 % Sodium Chloride 100 ML 440 MG IV (09:35)
[2023-07-14] MEDS: 0.9 % Sodium Chloride Flush 10 ML SYRINGE 5 ML IVFLUSH (09:49)
== END 2023-07-14 09:57 | disposition home or self-care (01) ==
LOC: HO.INF 09:26
PROVIDERS: Visit Provider Internal Medicine
DX: D50.9 Iron deficiency anemia, unspecified (principal)
CPT/HCPCS: 96374; J1756

== ENCOUNTER 2023-09-01 07:19 | Day surgery (SDC) | payer MEDICAID, SELFPAY ==
--- NOTE | 2023-08-30 13:15 | HO.ANESPROP2 ---
Documented by User: Cassandra Briscoe NP 08/30/23 13:15 HPI - Anesthesia Eval Consult details Narrative: 38yo F for Upper Endoscopy PMFSH Active Problems Active Problems: All Active Problems Fibroadenoma of right breast (Acute) Abnormal ultrasound of breast (Acute) Breast mass, right (Acute) Anemia (Chronic) Celiac disease (Acute) Diverticulitis (Acute) Hemorrhoids (Acute) GERD (gastroesophageal reflux disease) (Acute) Chronic idiopathic constipation (Acute) IBS (irritable bowel syndrome) (Acute) Chronic gastric erosion (Acute) Past Medical History Medical History History of celiac disease Asthma GERD (gastroesophageal reflux disease) Type 1 diabetes mellitus Chronic idiopathic constipation Chronic gastric erosion Family History Family History Father No problems noted. Mother Asthma Maternal Grandmother Diabetes HTN (hypertension) Breast cancer Sister Diabetes Family history of problems with anesthesia: No Surgical History Surgical History History of lumpectomy of right breast (06/26/23) History of right oophorectomy H/O hand surgery Hx of esophagogastroduodenoscopy History of Problems with Anesthesia: No Social History Social History Household Members: Spouse Alcohol intake: current Alcohol intake frequency: does not drink Patient Tobacco Use Status: Never used Tobacco Use of substances other than those prescribed or required for medical reasons: No Are you DNR?: No Advance Directives: No Advance Directives Information Provided: Yes Meds Allergies Allergy/AdvReac Type Severity Reaction Status Date / Time iodine [IODINE] Allergy Severe HIVES, Verified 08/11/23 11:22 THROAT SWELLING gluten Allergy Intermediate Vomiting Verified 08/11/23 11:22 Home Medications ?Medication ?Instructions ?Recorded ?Confirmed ?Last Taken ?Type lorazepam 0.5 mg tablet 0.5 mg PO DAILY PRN Anxiety 01/20/21 09/01/23 Unknown History albuterol sulfate 90 mcg/actuation 2 puff PO Q4-6H PRN Wheezing 10/19/21 09/01/23 Unknown History aerosol inhaler (ProAir HFA) insulin lispro 100 unit/mL 0 - 100 unit subcut DAILY 10/19/21 09/01/23 Unknown History subcutaneous solution (Humalog U-100 Insulin) blood sugar diagnostic (Accu-Chek #10 ea 04/10/23 08/11/23 Unknown History Guide test strips) hydroxyzine HCl 10 mg tablet 10 mg PO BEDTIME PRN anxiety 04/10/23 09/01/23 Unknown History lidocaine 5 % topical patch 1 patch topical DAILY 04/10/23 09/01/23 Unknown History ondansetron 4 mg disintegrating 4 mg PO Q8H PRN Nausea 06/26/23 09/01/23 Unknown History tablet Assessment and Plan Assessment Anesthesia Assessment: Chart Reviewed Final Anesthetic Review Family History of Problems with Anesthesia: No History of Problems with Anesthesia: No Documented by User: Tiarra Ross MD 09/01/23 09:06 [facility] Past Medical History Medical History History of celiac disease Asthma GERD (gastroesophageal reflux disease) Type 1 diabetes mellitus Chronic idiopathic constipation Chronic gastric erosion Family History Family History Father No problems noted. Mother Asthma Maternal Grandmother Diabetes HTN (hypertension) Breast cancer Sister Diabetes Surgical History Surgical History History of lumpectomy of right breast (06/26/23) History of right oophorectomy H/O hand surgery Hx of esophagogastroduodenoscopy Social History Social History Household Members: Spouse Alcohol intake: current Alcohol intake frequency: does not drink Patient Tobacco Use Status: Never used Tobacco Use of substances other than those prescribed or required for medical reasons: No Are you DNR?: No Advance Directives: No Advance Directives Information Provided: Yes Meds Allergies Allergy/AdvReac Type Severity Reaction Status Date / Time iodine [IODINE] Allergy Severe HIVES, Verified 08/11/23 11:22 THROAT SWELLING gluten Allergy Intermediate Vomiting Verified 08/11/23 11:22 Home Medications ?Medication ?Instructions ?Recorded ?Confirmed ?Last Taken ?Type lorazepam 0.5 mg tablet 0.5 mg PO DAILY PRN Anxiety 01/20/21 09/01/23 Unknown History albuterol sulfate 90 mcg/actuation 2 puff PO Q4-6H PRN Wheezing 10/19/21 09/01/23 Unknown History aerosol inhaler (ProAir HFA) insulin lispro 100 unit/mL 0 - 100 unit subcut DAILY 10/19/21 09/01/23 Unknown History subcutaneous solution (Humalog U-100 Insulin) blood sugar diagnostic (Accu-Chek #10 ea 04/10/23 08/11/23 Unknown History Guide test strips) hydroxyzine HCl 10 mg tablet 10 mg PO BEDTIME PRN anxiety 04/10/23 09/01/23 Unknown History lidocaine 5 % topical patch 1 patch topical DAILY 04/10/23 09/01/23 Unknown History ondansetron 4 mg disintegrating 4 mg PO Q8H PRN Nausea 06/26/23 09/01/23 Unknown History tablet Exam Airway Mallampati Class: II TM Dist: >3cm Neck ROM: Full Loose/Missing/Broken Teeth: No Heart: RRR Lungs: CTA Assessment and Plan Assessment Anesthesia Assessment: Anesthesia Plan Discussed Final Anesthetic Review NPO: Yes ASA Class: II Final Preanesthetic Review: Meds/Allgs Chart Reviewed, Consent Obtained/Reviewed and Anes Risks/Benef Reviewed Patient Risk: Low Procedure Risk: Intermediate Anesthetic Plan Anesthetic Plan: MAC: Disposition: Standard PACU
--- NOTE | 2023-09-01 06:07 | P.HPSUR_ITS ---
Pre-Procedural Eval Section A - 24 Hr Update-Section A only Date of Service: 09/01/23 Section B - Complete if H&P > 30 days Chief Complaint: Gastro-esophageal reflux disease without esophagit Relevant Family History (Specify if Yes): No Relevant Social History: None Present Medications: see Short Stay Collaborative assessment Medical History: Significant History ( Type 1 diabetes mellitus Chronic idiop athic constipation Chronic gastric erosion, celiac ) History of Previous Operations: Relevant previous surgery/procedure and date(s) (H/O hand surgery Hx of esophagogastroduodenoscopy) Allergies: Allergies Allergy/AdvReac Type Severity Reaction Status Date / Time iodine [IODINE] Allergy Severe HIVES, Verified 08/11/23 11:22 THROAT SWELLING gluten Allergy Intermediate Vomiting Verified 08/11/23 11:22 Review of Systems Sugical H&P ROS: Negative: Constitution, Cardiovascular, Respiratory, Neurological, Psychiatric, Hem-Onc, Allergic/Immunologic, Gastrointestinal, Genitourinary, Musculoskeletal, Integumentary, Endocrine and Eyes/Ears/Nos e/Throat Exam Surgical H&P Exam: Normal: HEENT, Normal: Heart, Normal: Lungs, Normal: Extremities, Normal: Abdomen, Normal: Skin and Normal: Neurological Plan Diagnosis/Plan: Unchanged I have reviewed the history and physical and performed a pertinent physical examination on my patient. No changes have occurred unless specified. Time Spent With Patient Time: Total time managing care of this patient today ____ minutes.
[2023-09-01 08:21] LABS: UPreg QC Valid YES; Urine Pregnancy NEGATIVE (NEGATIVE)
[2023-09-01 08:22] VITALS: BP 112/65; PULSE 94; RESP 18; TEMP 36.4; O2SAT 100; BMI 22.7
[2023-09-01] MEDS: Lactated Ringers 1,000 ML 100 ML IVCONT (08:58)
--- NOTE | 2023-09-01 09:17 | W.PM.OPN ---
Operative Note Operative Note Date of Service: 09/01/23 Narrative: Procedure Description: EGD Indication: GERD, celiac disease Anesthesia: MAC FLEXIBLE TRANSORAL UPPER GASTROINTESTINAL ENDOSCOPY UPPER ENDOSCOPY Consent: Indications for the procedure and potential complications of bleeding, perforation, reaction to medications and missed diagnosis were discussed with the patient and informed consent was obtained. Instrument: Olympus GIF H 190 J mid size upper endoscope Monitoring: Vital signs and clinical assessment, continuous EKG monitoring, Pulse oximetry, Carbon Dioxide monitoring and blood pressure monitoring were done throughout the procedure. Procedure: The patient was placed in the left lateral decubitis position and pre-procedure medications were administered and a bite block was placed. The endoscope was inserted into the mouth and advanced under direct vision to the third part of duodenum. A careful inspection was made as the upper endoscope was withdrawn including a retroflexed examination of the proximal stomach; Findings and interventions are described below. Findings: Larynx:normal Esophagus: GE junction at 38 cm, diaphragm hiatus at 38 cm, normal mucosa Stomach: full of solid food Duodenum: not entered Intervention: none Impression/Findings: possible gastroparesis, incomplete EGD-scope pulled back out due to large vol of food PLAN: GERD precautions repeat eGD after stays on day before consider GES
[2023-09-01 09:33] VITALS: BP 100/60; PULSE 92; RESP 18; TEMP 36.1; O2SAT 100
[2023-09-01 09:48] VITALS: BP 110/72; PULSE 82; RESP 16; TEMP 36.1; O2SAT 100
== END 2023-09-01 10:20 | disposition home or self-care (01) ==
PROVIDERS: Nurse Practitioner; PCP General Practice; Visit Provider Internal Medicine Gastroenterology
PROC: 0DJ08ZZ Inspection of Upper Intestinal Tract, Via Natural or Artificial Opening Endoscopic (ICD-10-PCS; CPT 43235; principal; 2023-09-01 09:10)
DX: K21.9 Gastro-esophageal reflux disease without esophagitis (principal); K90.0 Celiac disease; K58.1 Irritable bowel syndrome with constipation; E10.9 Type 1 diabetes mellitus without complications; Z79.899 Other long term (current) drug therapy; Z53.09 Procedure and treatment not carried out because of other contraindication
CPT/HCPCS: 43235; 81025; J2704

== ENCOUNTER → 2023-09-01 07:19 | Outpatient (BNV) | payer MEDICAID, SELFPAY | PROVIDERS: PCP General Practice; Visit Provider Internal Medicine Gastroenterology | DX: K90.0 Celiac disease (principal); K21.9 Gastro-esophageal reflux disease without esophagitis; K31.84 Gastroparesis; Z53.09 Procedure and treatment not carried out because of other contraindication | CPT/HCPCS: 43235 ==

== ENCOUNTER 2023-09-15 13:50 | Outpatient (AMB) | payer MEDICAID, SELFPAY ==
--- NOTE | 2023-09-15 14:04 | A.OFFVIS_ITS ---
Vital Signs 09/15/23 14:08 Height 5 ft 1 in Weight 118 lb 2.684 oz BMI 22.3 BP 96/54 L Blood Pressure Location Rt brachial Position Sitting Pulse 102 H Pulse Source Pulse Oximeter Pulse Oximetry (%) 98 Oxygen Delivery Method Room Air Intake Visit Reasons: S/P Double; Dr. Howard Intake Note: Loly presents in office today for a post op FUV (egd) CC: Pt reports that they have not had any new sx or concerns post op, pt denies any complications. Pt is here today to discuss the results of the procedure. Rehabilitation Case Coordinator Required: No Allergies iodine [IODINE] Allergy (Severe, Verified 09/15/23 14:07) HIVES, THROAT SWELLING gluten Allergy (Intermediate, Verified 09/15/23 14:07) Vomiting HPI HPI S/P Double; Dr. Howard: Details: LAST VISIT: Celiac disease GERD (gastroesophageal reflux disease) Chronic idiopathic constipation IBS (irritable bowel syndrome) Plan Continue avoiding gluten. Transglutaminase elevated which tells me that patient occasionally eats gluten. Patient will be started on Nexium, will increase famotidine to 40 mg at bedtime. Discussed with patient avoiding also dietary triggers like spicy food and fried. Avoid eating late at night. Staying upright for minimum 3 hours after meals discussed with patient. Patient will return in 2 months. Will discuss sending her for upper endoscopy. Patient is agreeable to this plan and verbalizes understanding of instructions. She was given the opportunity to ask questions and all questions answered. ? Thank you for allowing me to participate in her care Medications New esomeprazole magnesium (Nexium) 40 mg PO DAILY 30 caps 5RF K21.9 famotidine 40 mg PO BEDTIME 30 tabs 3RF K21.9 Discontinued famotidine (Pepcid) Discontinued Reason: Doctor's Order 20 mg PO BEDTIME 90 tabs 3RF K21.9 pantoprazole take one tablet half an hour before breakfast Discontinued Reason: Doctor's Order 40 mg PO DAILY 90 tabs 3RF K21.9 UPPER ENDO Findings: Larynx:normal Esophagus: GE junction at 38 cm, diaphragm hiatus at 38 cm, normal mucosa Stomach: full of solid food Duodenum: not entered Intervention: none Impression/Findings: possible gastroparesis, incomplete EGD-scope pulled back out due to large vol of food GASTRIC EMPTYING STUDY FINDINGS: 08/09/2022 There is good visualization of activity in the stomach immediately post ingestion. As the study progresses, there is good clearance of activity from the stomach and visualization of progressively increasing small bowel activity. By the end of the study, there is almost no retention noted in the stomach. Retention in the stomach at each time interval was: 1 hour 58%% (normal 37%-90%) 2 hours 35% (normal 30%-60%) 3 hours 19% 4 hours 6% (normal 0%-10%) NM/NM gastric emptying study IMPRESSION: Normal 4-hour solid food gastric emptying study TODAY'S VISIT Patient is here today for follow-up and to discuss upper endoscopy results. Patient had upper endoscopy, however EGD scope pulled out due to large amount of food in her stomach. Patient reports that she ate last meal day before procedure at 16:00. Patient had gastric emptying study done last year, patient had normal gastric emptying. Patient reports that she has been doing better with avoiding gluten. Unfortunately unable to pass to her duodenum to check for celiac and biopsy. Patient reports that she has been feeling well. Patient is taking Nexium in the morning and famotidine at bedtime and reports that her symptoms of acid reflux are suppressed. Patient is also taking Senokot and Colace and reports that she is able to move her bowels well. Patient denies any GI concerning symptoms today. Asking for refills on all of her medications. [facility] Medical History History of celiac disease Asthma GERD (gastroesophageal reflux disease) Type 1 diabetes mellitus Chronic idiopathic constipation Chronic gastric erosion Surgical History History of lumpectomy of right breast (06/26/23) History of right oophorectomy H/O hand surgery Hx of esophagogastroduodenoscopy Family History Father No problems noted. Mother Asthma Maternal Grandmother Diabetes HTN (hypertension) Breast cancer Sister Diabetes Social History Household Members: Spouse Alcohol intake: current Alcohol intake frequency: does not drink Patient Tobacco Use Status: Never used Tobacco Female Reproductive History Menstrual Age of Menarche: 13 Physical Exam Vital Signs: Last Vital Signs Pulse 102 H 09/15/23 14:08 BP 96/54 L 09/15/23 14:08 Pulse Ox 98 09/15/23 14:08 Oxygen Delivery Method Room Air 09/15/23 14:08 BMI result Body Mass Index 22.3 Const General: healthy appearing, no acute distress and well developed Nutritional Appearance: well nourished Orientation/consciousness: patient oriented x3 Resp Effort & Inspection: normal respiratory effort, able to speak in complete sentences, no tracheal deviation and symmetric chest movement Auscultation: clear to auscultation bilaterally Cardio Rate: regular rate GI Inspection: Yes normal to inspection and No distended Palpation (GI): Soft to palpation, not firm, nontender and No hepatosplenomegaly present Auscultation: normal bowel sounds General: Yes no CVA tenderness Back/Spine/Pelvis Back: no CVA tenderness Skin General skin exam: elasticity normal, turgor normal and dry skin Neuro General: patient oriented x3 Psych Appearance: grossly normal Mental Status: mental status grossly normal Assessment & Plan Assessment & Plan (1) Celiac disease: Code(s): K90.0 - Celiac disease Category: Medical (2) GERD (gastroesophageal reflux disease): Code(s): K21.9 - Gastro-esophageal reflux disease without esophagitis Category: Medical Qualifiers: Esophagitis presence: esophagitis presence not specified Qualified Code(s): K21.9 - Gastro-esophageal reflux disease without esophagitis (3) Chronic idiopathic constipation: Code(s): K59.04 - Chronic idiopathic constipation Category: Medical (4) IBS (irritable bowel syndrome): Code(s): K58.9 - Irritable bowel syndrome without diarrhea Category: Medical Qualifiers: Irritable bowel syndrome type: with constipation Qualified Code(s): K58.1 - Irritable bowel syndrome with constipation Plan Large amount of food found in her stomach when she underwent endoscopy. Unable to finish the procedure. Patient will be sent for gastric emptying study even though her study from last year was normal. Continue current management with Nexium and famotidine. Avoid dietary triggers and late night snacking. Staying upright for minimum 3 hours after meals discussed with patient. Continue current bowel regimen. Script for Andria sent. Patient will be traveling to [place] on Monday for 50 anniversary of her 's parents. She will follow-up in the office in 3 months, sooner on as needed basis. She is agreeable to this plan and verbalizes understanding of instructions. She was given the opportunity to ask questions and all questions answered. Thank you for allowing me to participate in her care Orders: Orders NM gastric emptying study Today R68.81 - Early satiety Medications: New ondansetron 4 mg PO Q8H PRN 20 tabs 0RF Nausea sennosides (Natural Senna Laxative) 17.2 mg (2 x 8.6 mg) PO BEDTIME 180 tabs 3RF constipation K59.00 - Constipation, unspecified Refilled esomeprazole magnesium (Nexium) 40 mg PO DAILY 30 caps 5RF K21.9 - Gastro-esop hageal reflux disease without esophagitis famotidine 40 mg PO BEDTIME 30 tabs 3RF K21.9 - Gastro-esophageal reflux disease without esophagitis dicyclomine 10 mg PO TID 90 caps 2RF Coding Level of Care Code Est Pt Level 4 (00336) Diagnoses Celiac disease K90.0 Gastroesophageal reflux disease, unspecified whether esophagitis present K21.9 Esophagitis presence: esophagitis presence not specified Chronic idiopathic constipation K59.04 Irritable bowel syndrome with constipation K58.1 Irritable bowel syndrome type: with constipation Time Spent (min) 35 Comment 20 minutes spent with patient and additional 15 minutes spent reviewing her records
[2023-09-15 14:08] VITALS: BP 96/54; PULSE 102; O2SAT 98; BMI 22.3
== END 2023-09-15 14:38 | disposition home or self-care (01) ==
PROVIDERS: PCP General Practice; Visit Provider Nurse Practitioner Family
DX: K90.0 Celiac disease (principal); K21.9 Gastro-esophageal reflux disease without esophagitis; K59.04 Chronic idiopathic constipation; K58.1 Irritable bowel syndrome with constipation
CPT/HCPCS: 99214

== ENCOUNTER → 2023-09-15 13:50 | Outpatient (BNVA) | payer MEDICAID, SELFPAY | PROVIDERS: PCP General Practice; Visit Provider Nurse Practitioner Family | DX: K90.0 Celiac disease (principal); K21.9 Gastro-esophageal reflux disease without esophagitis; K59.04 Chronic idiopathic constipation; K58.1 Irritable bowel syndrome with constipation; Z98.890 Other specified postprocedural states | CPT/HCPCS: 99212 ==

== ENCOUNTER 2023-10-03 09:55 | Outpatient (AMB) | payer MEDICAID, SELFPAY ==
--- NOTE | 2023-10-03 10:01 | MHC.OFFVIS ---
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 Patient reports locking and catching for about 8 months, denies injury. Denies numbness or tingling. Her finger will become stuck and she will have to pop her finger back into place. States pain between the base of her finger up to her PIP. She has tried massaging her finger however this does not help. No previous tx. 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 Patient also reports pain at the base of the right middle finger in this time frame. Patient reports that the finger occasionally becomes stuck, and that she needs to use her left hand to unlock the trigger. Denies injury to the area. Denies numbness and tingling to any digit of the right hand. [facility] Medical History History of celiac disease Asthma GERD (gastroesophageal reflux disease) Type 1 diabetes mellitus Chronic idiopathic constipation Chronic gastric erosion Surgical History History of lumpectomy of right breast (06/26/23) History of right oophorectomy H/O hand surgery Hx of esophagogastroduodenoscopy Family History Father No problems noted. Mother Asthma Maternal Grandmother Diabetes HTN (hypertension) Breast cancer Sister Diabetes Social History (Updated 10/03/23 @ 10:07 by TORITO Caldera) Household Members: Spouse Alcohol intake: current Alcohol intake frequency: does not drink Patient Tobacco Use Status: Never used Tobacco Current occupational status: unemployed Current occupation: right hand dominant Female Reproductive History Menstrual Age of Menarche: 13 Review of Systems Const All systems reviewed & are unremarkable except as noted in HPI and below Physical Exam Vital Signs: BMI result Body Mass Index 22.3 Const Other: Patient is alert, oriented, cooperative, and in no acute distress HEENT Head: Yes normocephalic and Yes atraumatic Resp Effort & Inspection: normal respiratory effort and able to speak in complete sentences Cardio Jugular venous distension: no JVD Neuro General: gait normal Cognition (Neuro): normal cognition Extrem Other: Patient is alert, oriented, and in no acute distress. Neuro: Median, ulnar, radial nerves motor and sensory intact and sensation is normal to the tips of all digits. Vascular: Cap refill brisk Pain: Patient reports tenderness to palpation at the A1 maurice in the right middle finger, as well as on the radial and ulnar aspects of the proximal right middle finger. ROM: Patient is able to flex all digits of the right hand fully, and make a fist. However, when the patient is asked to extend all digits, there is visible and palpable locking and catching in the middle finger at the level of the A1 maurice. Skin: No lacerations or abrasions. General: No ecchymosis, erythema, or evidence of infection. Psych: Appears grossly normal Affect normal Attitude cooperative Psych Appearance: grossly normal Mental Status: mental status grossly normal Office Procedures Injection-Therapetic Trigger Single Point: 33912-Legyeqd point injection, 1 or 2 R MF trigger injection Assessment & Plan Assessment & Plan (1) Trigger finger, right middle finger: Code(s): M65.331 - Trigger finger, right middle finger Category: Medical Plan 1. Trigger finger, right middle finger Time of onset approximately 8-9 months ago Patient demonstrates visible and palpable locking and catching at the A1 maurice of the right middle finger at this time. Treatment options discussed with the patient, and decision made to proceed with trigger injection at this time. Injection #1 The risks and benefits of a steroid injection including but not limited to risk of damage to blood vessels, nerves, tendons, infection, skin bleaching, failure to improve symptoms, increased pain, and possible need for further injections or other intervention were discussed with the patient and the patient wishes to proceed with the steroid injection. Once consent was obtained, I sterilely prepped the area over the A1 maurice of the flexor tendon sheath of the right middle finger. I then injected the flexor tendon sheath with a combination of 1 mL of dexamethasone (4mg/ml), and 1% lidocaine. The patient tolerated the procedure well with no complications. If the patient continues to have locking and catching 4-6 weeks following this injection, they may call to schedule appointment to discuss alternative treatment options Follow-up prn Coding Level of Care Code New Pt Level 3 (47618) Diagnoses Trigger finger, right middle finger M65.331 CPT Codes Details - Trigger Single Point: 45575-Uwdduyz point injection, 1 or 2 ([id number])
[2023-10-03 10:03] VITALS: BMI 22.3
== END 2023-10-03 11:27 | disposition home or self-care (01) ==
PROVIDERS: PCP General Practice
DX: M65.331 Trigger finger, right middle finger (principal)
CPT/HCPCS: 20550; 20552; 99203

== ENCOUNTER → 2023-10-03 09:55 | Outpatient (BNVA) | payer MEDICAID, SELFPAY | PROVIDERS: PCP General Practice | DX: M65.331 Trigger finger, right middle finger (principal) | CPT/HCPCS: 20550; 20552; 99212; J1100 ==

== ENCOUNTER → 2023-11-01 07:52 | Outpatient (REF) | payer MEDICAID, SELFPAY ==
--- NOTE | ~2023-11-01 | NM_ITS ---
EXAMINATION: RADIONUCLIDE SOLID FOOD GASTRIC EMPTYING 4-HOUR STUDY CLINICAL INFORMATION: Early satiety. COMPARISON: Radionuclide solid food gastric emptying study done on 08/09/2022. TECHNIQUE: A standard meal consisting of 4 oz of Egg Beaters brand tagged with 990 microcuries Tc-99m Sulfur Colloid, 8 oz water and 2 slices of toast with jelly was administered orally to the patient. Images were obtained using a dual head gamma camera in the anterior and posterior projections over of the stomach immediately post ingestion and at hourly intervals up to 4 hours post ingestion. The anterior and posterior counts at each time interval were averaged using the geometric mean and expressed as percentage of the immediate post ingestion counts. FINDINGS: There is good visualization of activity in the stomach immediately post ingestion. As the study progresses, there is delayed clearance of activity from the stomach and delayed visualization of progressively increasing small bowel activity. By the end of the study, there is significant retention noted in the stomach. Retention in the stomach at each time interval was: 1 hour 95% (normal 37%-90%) 2 hours 83% (normal 30%-60%) 3 hours 75% 4 hours 67% (normal 0%-10%) OR/OR gastric emptying study IMPRESSION: Abnormal (grade 4) delayed 4 hour gastric emptying study. New since the prior study dated 08/19/2022. (For solid meal, rapid gastric emptying is less than 30% at 60 minutes. Delayed gastric emptying criteria is more than 60% remaining at 120 minutes or more than 10% at 240 minutes. The 4-hour value is the best discriminator of a normal or abnormal result). Gastric emptying study grading per JNMT Consensus Recommendations in 2008 (https://tech.snmjournals.org/content/36/1/44) Grade 1 (mild retention): 11-20% at 4h Grade 2 (moderate retention): 21-35% at 4h Grade 3 (severe retention): 36-50% at 4h Grade 4 (very severe retention): >50% retention at 4h
== END ==
LOC: HO.NUCMED 07:52
PROVIDERS: PCP General Practice; Visit Provider Nurse Practitioner Family
DX: R68.81 Early satiety (principal)
CPT/HCPCS: 78264; A9541

== ENCOUNTER 2023-11-14 11:47 | Outpatient (REF) | payer MEDICAID, SELFPAY ==
[2023-11-14 13:12] LABS: MANUAL DIFF FLAG NO
[2023-11-14 13:28] LABS: Basophils Percent Auto 0.3 % (0-2); Eosinophils Absolute Auto 0.2 X10*3/uL (0.0-0.4); Hematocrit 38.3 % (37.0-47.0); Hemoglobin 12.8 g/dl (12.0-16.0); Imm Gran Abs Auto 0.03 X10*3/uL (0.00-0.03); Imm Gran Pct Auto 0.3 % (0.0-0.4); Lymphocytes Absolute Auto 1.5 X10*3/uL (1.2-4.9); Lymphocytes Percent Auto 15.4 % (20-40); Mean Corpuscular HGB Conc 33.4 g/dl (31.0-35.0); Mean Corpuscular Hemoglobin 31.9 pg (27.0-33.0); Mean Corpuscular Volume 95.5 fL (80.0-98.0); Mean Platelet Volume 10.5 fL (9.4-12.3); Monocytes Absolute Auto 0.6 X10*3/uL (0.1-1.2); Neutrophils Absolute Auto 7.3 x10*3/uL (2.0-8.3); Platelet Count 254 X10*3/uL (160-400); Red Blood Count 4.01 X10*6/uL (4.20-5.50); Red Cell Distribution Width 12.4 % (11.0-16.0); White Blood Count 9.6 X10*3/uL (4.8-10.8)
[2023-11-14 13:43] LABS: Anion Gap 15 (12-20); Blood Urea Nitrogen 14 mg/dL (9-16); Carbon Dioxide 22 mmol/L (22-29); Chloride 103 mmol/L (96-108); Estimated Glomerular Filt Rate 54; Glucose Random 313 mg/dL (60-115); Potassium 4.1 mmol/L (3.3-5.1); Sodium 136 mmol/L (135-145)
== END 2023-11-14 11:48 | disposition home or self-care (01) ==
LOC: HO.HHCL 11:47
PROVIDERS: Visit Provider General Practice
DX: E10.3593 Type 1 diabetes mellitus with proliferative diabetic retinopathy without macular edema, bilateral (principal); D50.8 Other iron deficiency anemias
CPT/HCPCS: 36415; 80048; 85025

== ENCOUNTER 2023-11-22 14:41 | Outpatient (AMB) | payer MEDICAID, SELFPAY ==
--- NOTE | 2023-11-22 14:58 | A.OFFVIS_ITS ---
Vital Signs 11/22/23 15:05 Height 5 ft 1 in Weight 118 lb BMI 22.3 Handedness Right Intake Visit Reasons: OV- RT hand pain/swelling Intake Note: Loly is a 38 year old right hand dominant female who presents today for a follow up visit for her right middle finger trigger and hand pain s/p right MF trigger injection on 10/03/23. She states that is been about a month when she notice swelling in her fingers and some slight deformities in her fingers. Patient reports she notices swelling on the volar aspect of the base of the index finger. Patient cortes improvements the first week of getting the injection. 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 The patient reports that, approximately 2 weeks after receiving the injection for her right middle finger trigger finger, she noticed the same locking and catching in the right index finger, along with pain over the A1 maurice of the right index finger and a focal area of swelling with a noticeable ?ball? in the same area. Of note, the patient reports that she experienced relief from the locking and catching of her right middle finger one-week after injection, and reports that while she still experiences some locking and catching, it is greatly improved from prior to injection. Patient denies any numbness or tingling in the right upper extremity. No other acute complaints or concerns at this time. [facility] Medical History History of celiac disease Asthma GERD (gastroesophageal reflux disease) Type 1 diabetes mellitus Chronic idiopathic constipation Chronic gastric erosion Surgical History History of lumpectomy of right breast (06/26/23) History of right oophorectomy H/O hand surgery Hx of esophagogastroduodenoscopy Family History Father No problems noted. Mother Asthma Maternal Grandmother Diabetes HTN (hypertension) Breast cancer Sister Diabetes Social History Household Members: Spouse Alcohol intake: current Alcohol intake frequency: does not drink Patient Tobacco Use Status: Never used Tobacco Current occupational status: unemployed Current occupation: right hand dominant Female Reproductive History Menstrual Age of Menarche: 13 Physical Exam Vital Signs: BMI result Body Mass Index 22.3 Extrem Other: Patient is alert, oriented, and in no acute distress. Neuro: Patient reports normal sensation of the tips of all digits of the right hand at this time. Vascular: Cap refill brisk Pain: Patient reports tenderness to palpation over the A1 maurice of the right index finger. No tenderness to palpation of the A1 maurice of the right middle finger The patient does report pain associated with locking and catching of the right index finger when extending from a closed fist No other tenderness to palpation of the right index or middle fingers ROM: Patient is able to make a closed fist without difficulty Upon extension, there is noted to be visible and palpable locking and catching of the right index finger No visible or palpable locking and catching of the right middle finger noted in the office today. Skin: No lacerations or abrasions. General: No ecchymosis, erythema, or evidence of infection. Psych: Appears grossly normal Affect normal Attitude cooperative Office Procedures Tendon Injection Tendon Injection Details: R IF trigger injection 42060-Pmfygk Tendon Sheath Injection All charges added?: Procedure code (CPT) selection complete Assessment & Plan Assessment & Plan (1) Trigger finger, right index finger: Code(s): M65.321 - Trigger finger, right index finger Category: Medical (2) Trigger finger, right middle finger: Code(s): M65.331 - Trigger finger, right middle finger Category: Medical Plan 1. Trigger finger, right index finger The risks and benefits of a steroid injection including but not limited to risk of damage to blood vessels, nerves, tendons, infection, skin bleaching, failure to improve symptoms, increased pain, and possible need for further injections or other intervention were discussed with the patient and the patient wishes to proceed with the steroid injection. Once consent was obtained, I sterilely prepped the area over the A1 maurice of the flexor tendon sheath of the right index finger. I then injected the flexor tendon sheath with a combination of 1 mL of dexamethasone (4mg/ml), and 1% lidocaine. The patient tolerated the procedure well with no complications. If the patient continues to have locking and catching 4-6 weeks following this injection, they may call to schedule appointment to discuss alternative treatment options Follow-up prn 2. Trigger finger, right middle finger At this time, the patient reports very good relief with previous injection for right middle finger trigger finger Patient does report that she still does experience occasional locking and catching, but that it is greatly improved since prior to injection and she feels that she has full functional capacity of her right middle finger Patient does not feel that she requires any additional treatment at this time Patient will follow-up p.r.n. with any acute concerns Orders: Orders OT Evaluation and Treatment 11/22/23 M25.641 - Stiffness of right hand, not elsewhere classified Coding Level of Care Code Est Pt Level 3 (07771) Diagnoses Trigger finger, right index finger M65.321 Trigger finger, right middle finger M65.331 CPT Codes Tendon Injection - Tendon Injection 1: 92888-Wsrkem Tendon Sheath Injection ([id number])
[2023-11-22 15:05] VITALS: BMI 22.3
== END 2023-11-22 15:50 | disposition home or self-care (01) ==
PROVIDERS: PCP General Practice
DX: M65.321 Trigger finger, right index finger (principal); M65.331 Trigger finger, right middle finger
CPT/HCPCS: 20550; 99213

== ENCOUNTER → 2023-11-22 14:41 | Outpatient (BNVA) | payer MEDICAID, SELFPAY | PROVIDERS: PCP General Practice | DX: M65.331 Trigger finger, right middle finger (principal); M65.321 Trigger finger, right index finger | CPT/HCPCS: 20550; 99212; J1100; J3301 ==

== ENCOUNTER 2023-12-15 14:56 | Outpatient (AMB) | payer MEDICAID, SELFPAY ==
--- NOTE | 2023-12-15 15:50 | A.OFFVIS_ITS ---
Intake Visit Reasons: New prob- B/L Knee Pain Intake Note: Loly is a 38 year old female who presents today for a new problem visit with complaints of bilateral knee pain. Pt states the pain has been for about a month and states the left leg is worse than her right leg. Pt states she had a hand injection and since then she has been having joint pain all over her body. Senior Publications Specialist Name: Roma ([id number]) Allergies iodine [IODINE] Allergy (Severe, Verified 12/26/23 13:46) HIVES, THROAT SWELLING gluten Allergy (Intermediate, Verified 12/26/23 13:46) Vomiting HPI HPI New prob- B/L Knee Pain: Details: Patient is a 38-year-old female who presents for evaluation of bilateral knee pain, left worse than right. Patient states that this has been going on for approximately 1 month. Patient reports that she experiences difficulty with ambulation due to this knee pain. Patient reports that this pain is diffuse throughout the left and right knees, but states that it is worst on the posterior aspect of both knees. Patient reports that her knees both occasionally get swollen. No other acute complaints or concerns at this time. [facility] Medical History History of celiac disease Asthma GERD (gastroesophageal reflux disease) Type 1 diabetes mellitus Chronic idiopathic constipation Chronic gastric erosion Surgical History History of lumpectomy of right breast (06/26/23) History of right oophorectomy H/O hand surgery Hx of esophagogastroduodenoscopy Family History Father No problems noted. Mother Asthma Maternal Grandmother Diabetes HTN (hypertension) Breast cancer Sister Diabetes Social History Household Members: Spouse Alcohol intake: current Alcohol intake frequency: does not drink Patient Tobacco Use Status: Never used Tobacco Current occupational status: unemployed Current occupation: right hand dominant Female Reproductive History Menstrual Age of Menarche: 13 Review of Systems Const All systems reviewed & are unremarkable except as noted in HPI and below Physical Exam Extrem Other: On inspection, there is no visible deformity of bilateral knees No edema, erythema, ecchymosis noted No lacerations, abrasions, open areas No evidence of infection Patient diffuse tenderness to palpation of the both knees, worst of the posterior aspect of both knees Patient is able to extend the left knee to 0 degrees and flex to approximately 120 degrees without difficulty No ligamentous laxity noted Distal sensation intact Capillary refill brisk Negative Basil's Results Reviewed Results Reviewed: X-rays obtained in the office today and independently reviewed by me, Kevin Alcocer PA-C, demonstrate mild joint space narrowing of bilateral knees, and lateralization of bilateral patellas, left worse than right. No fracture or acute bony abnormality noted. Assessment & Plan Assessment & Plan (1) Bilateral primary osteoarthritis of knee: Code(s): M17.0 - Bilateral primary osteoarthritis of knee Category: Medical Plan 1. Osteoarthritis of bilateral knees Patient is educated about this condition Patient is educated about the typical recovery course At this time, patient will be referred to physical therapy for range of motion, strengthening, stabilization, and correction of the lateralization of the bilateral patellas of both knees Patient is amenable to this plan Patient is advised that if 6-8 weeks after beginning physical therapy, she does not notice any improvement, she should call our office to schedule another appointment for repeat evaluation and discussion of any further treatment options indicated at that time Patient is amenable to this plan Patient will follow-up as needed with any acute concerns Orders: Orders XR knee LT 3V 12/15/23 M25.562 - Pain in left knee PT Evaluation and Treatment 12/15/23 M17.0 - Bilateral primary osteoarthritis of knee XR knee RT 3V 12/15/23 M17.11 - Unilateral primary osteoarthritis, right knee Coding Level of Care Code Est Pt Level 3 (43812) Diagnoses Bilateral primary osteoarthritis of knee M17.0
== END 2023-12-15 16:14 | disposition home or self-care (01) ==
PROVIDERS: PCP General Practice
DX: M17.0 Bilateral primary osteoarthritis of knee (principal)
CPT/HCPCS: 99213

== ENCOUNTER 2023-12-15 15:05 | Outpatient (REF) | payer MEDICAID, SELFPAY ==
--- NOTE | ~2023-12-15 | XR_ITS ---
EXAMINATION: Bilateral knee series CLINICAL INFORMATION: Pain in the right and left knee. Osteoarthritis. COMPARISON: None. TECHNIQUE: 3 views of each knee including AP upright FINDINGS: Right knee: The bones joints and soft tissues are normal. No effusion. Left knee: The bones joints and soft tissues are normal. No effusion. XR/XR knee RT 3V IMPRESSION: RIGHT KNEE: Normal. LEFT KNEE: Normal. Electronically signed by: Oren Pate MD 01/11/2024 06:14 AM EDT
--- NOTE | ~2023-12-15 | XR_ITS ---
EXAMINATION: Bilateral knee series CLINICAL INFORMATION: Pain in the right and left knee. Osteoarthritis. COMPARISON: None. TECHNIQUE: 3 views of each knee including AP upright FINDINGS: Right knee: The bones joints and soft tissues are normal. No effusion. Left knee: The bones joints and soft tissues are normal. No effusion. XR/XR knee LT 3V IMPRESSION: RIGHT KNEE: Normal. LEFT KNEE: Normal. Electronically signed by: Oren Pate MD 01/11/2024 06:14 AM EDT RP
== END 2023-12-15 15:06 | disposition home or self-care (01) ==
LOC: HO.HOSX 15:05
PROVIDERS: PCP General Practice
DX: M25.562 Pain in left knee (principal); M17.0 Bilateral primary osteoarthritis of knee; M17.11 Unilateral primary osteoarthritis, right knee
CPT/HCPCS: 73562; 99212

== ENCOUNTER 2023-12-26 13:41 | Outpatient (AMB) | payer MEDICAID, SELFPAY ==
--- NOTE | 2023-12-26 13:44 | MHC.OFFVIS ---
Vital Signs 12/26/23 13:45 Height 5 ft 1 in Weight 120 lb 13.013 oz BMI 22.8 BP 108/58 L Blood Pressure Location Lt brachial Position Sitting Pulse 94 Pulse Source Pulse Oximeter Pulse Oximetry (%) 99 Oxygen Delivery Method Room Air Intake Visit Reasons: 3 month follow up Intake Note: Loly presents in office today for a scheduled 3 mos FUV. CC; Pt is here to discuss recent nuclear study 11/01/23, as well as their progress with recent Rx fills for; zofran, senna, famotidine, esomeprazole, and dicyclomine. Pt reports that they have remained stable since their last visit. Pt denies any new sx or concerns at this time. Pt states that they are still taking their rx'd medications as intended without any difficulties. Commercial Marketing Specialist Required: Yes Allergies iodine [IODINE] Allergy (Severe, Verified 01/03/24 14:59) HIVES, THROAT SWELLING gluten Allergy (Intermediate, Verified 01/03/24 14:59) Vomiting HPI HPI 3 month follow up: Details: LAST VISIT: Celiac disease GERD (gastroesophageal reflux disease) Chronic idiopathic constipation IBS (irritable bowel syndrome) Plan Large amount of food found in her stomach when she underwent endoscopy. Unable to finish the procedure. Patient will be sent for gastric emptying study even though her study from last year was normal. Continue current management with Nexium and famotidine. Avoid dietary triggers and late night snacking. Staying upright for minimum 3 hours after meals discussed with patient. Continue current bowel regimen. Script for Zofran sent. Patient will be traveling to [place] on Monday for 50th anniversary of her 's parents. She will follow-up in the office in 3 months, sooner on as needed basis. She is agreeable to this plan and verbalizes understanding of instructions. She was given the opportunity to ask questions and all questions answered. ? Thank you for allowing me to participate in her care Orders Orders NM gastric emptying study Today R68.81 Medications New ondansetron 4 mg PO Q8H PRN 20 tabs 0RF Nausea sennosides (Natural Senna Laxative) 17.2 mg (2 x 8.6 mg) PO BEDTIME 180 tabs 3RF constipation K59.00 Refilled esomeprazole magnesium (Nexium) 40 mg PO DAILY 30 caps 5RF K21.9 famotidine 40 mg PO BEDTIME 30 tabs 3RF K21.9 dicyclomine 10 mg PO TID 90 caps 2RF TODAY'S VISIT: Patient is here today for follow-up and to discuss gastric emptying study that was done in October. Patient had normal gastric emptying study in October of 2022: 1 hour 58%% (normal 37%-90%) 2 hours 35% (normal 30%-60%) 3 hours 19% 4 hours 6% (normal 0%-10%) Study done in October showed significant gastroparesis. Patient reports that she actually is feeling better except for the fact that she is constipated. Patient states that she is avoiding dietary triggers. Diagnosed with celiac disease and has been avoiding gluten. Patient denies any nausea or vomiting. Denies dyspepsia, dysphagia or odynophagia. Trying to get his blood sugars under control. Currently takes as omeprazole in the morning and famotidine at bedtime. Symptoms of acid reflux are suppressed. Patient denies melena, hematochezia, unintentional weight loss or ribbon like stools. [facility] Medical History (Updated 01/03/24 @ 16:04 by Mackenzie Tesfaye MD) Celiac disease Seronegative inflammatory arthritis Asthma GERD (gastroesophageal reflux disease) Type 1 diabetes mellitus Chronic idiopathic constipation Chronic gastric erosion Surgical History History of lumpectomy of right breast (06/26/23) History of right oophorectomy H/O hand surgery Hx of esophagogastroduodenoscopy Family History Father No problems noted. Mother Asthma Maternal Grandmother Diabetes HTN (hypertension) Breast cancer Sister Diabetes Social History Household Members: Spouse Alcohol intake: current Alcohol intake frequency: does not drink Patient Tobacco Use Status: Never used Tobacco Current occupational status: unemployed Current occupation: right hand dominant Female Reproductive History Menstrual Age of Menarche: 13 Review of Systems Const Denies weight gain and Denies weight loss ENT Reports no additional complaints, Denies dysphagia and Denies odynophagia Card Reports no additional complaints Resp Reports no additional complaints GI Denies abdominal pain, Denies belching, Denies melena, Denies bloating, Denies change in bowel habits, Denies dysphagia, Denies excessive flatus, Denies dyspepsia, Denies heartburn, Denies diarrhea, Denies loose stools, Denies nausea, Denies odynophagia and Denies vomiting Musc Reports no additional complaints Neuro Reports no additional complaints Psych Reports no additional complaints Endo Reports no additional complaints Physical Exam Vital Signs: Last Vital Signs Pulse 94 12/26/23 13:45 BP 108/58 L 12/26/23 13:45 Pulse Ox 99 12/26/23 13:45 Oxygen Delivery Method Room Air 12/26/23 13:45 BMI result Body Mass Index 22.8 Const General: healthy appearing, no acute distress and well developed Nutritional Appearance: well nourished Orientation/consciousness: patient oriented x3 Resp Effort & Inspection: normal respiratory effort, able to speak in complete sentences, no tracheal deviation and symmetric chest movement Auscultation: clear to auscultation bilaterally Cardio Rate: regular rate GI Inspection: Yes normal to inspection and No distended Palpation (GI): Soft to palpation, not firm, nontender and No hepatosplenomegaly present Auscultation: normal bowel sounds General: Yes no CVA tenderness Back/Spine/Pelvis Back: no CVA tenderness Skin General skin exam: elasticity normal, turgor normal and dry skin Neuro General: patient oriented x3 Psych Appearance: grossly normal Mental Status: mental status grossly normal Results Reviewed Results Reviewed: GASTRIC EMPTYING STUDY FINDINGS: There is good visualization of activity in the stomach immediately post ingestion. As the study progresses, there is delayed clearance of activity from the stomach and delayed visualization of progressively increasing small bowel activity. By the end of the study, there is significant retention noted in the stomach. Retention in the stomach at each time interval was: 1 hour 95% (normal 37%-90%) 2 hours 83% (normal 30%-60%) 3 hours 75% 4 hours 67% (normal 0%-10%) NM/NM gastric emptying study IMPRESSION: Abnormal (grade 4) delayed 4 hour gastric emptying study. New since the prior study dated 08/19/2022. Assessment & Plan Assessment & Plan (1) Celiac disease: Code(s): K90.0 - Celiac disease Category: Medical (2) GERD (gastroesophageal reflux disease): Code(s): K21.9 - Gastro-esophageal reflux disease without esophagitis Category: Medical Qualifiers: Esophagitis presence: esophagitis presence not specified Qualified Code(s): K21.9 - Gastro-esophageal reflux disease without esophagitis (3) Chronic idiopathic constipation: Code(s): K59.04 - Chronic idiopathic constipation Category: Medical (4) IBS (irritable bowel syndrome): Code(s): K58.9 - Irritable bowel syndrome, unspecified Category: Medical Qualifiers: Irritable bowel syndrome type: with constipation Qualified Code(s): K58.1 - Irritable bowel syndrome with constipation (5) Gastroparesis: Code(s): K31.84 - Gastroparesis Plan Significant gastroparesis found on gastric emptying study. Unsure if patient was very constipated than she does admit to be constipated no BM for few days. Also if patient is not avoiding gluten duodenal motility could be delayed. Patient has not been complaining of any abdominal pain or discomfort. Study was done back in October. Patient is not sure if she had any symptoms then. As of right now patient will eat smaller meals avoid fiber. Encouraged to drink fluids increase activity to promote better bowel motility. Will start her on Linzess for now and see if that will help her. Patient will continue Nexium and famotidine. Avoid dietary triggers and late night snacking. Staying upright for minimum 3 hours after meals discussed with patient. Patient will follow-up in our office in 2 months, sooner on as needed basis. She is agreeable to this plan and verbalizes understanding of instructions. She was given the opportunity to questions and all questions answered Thank you for allowing me to participate in her care Medications: New linaclotide (Linzess) 145 mcg PO DAILY 30 caps 2RF Discontinued docusate sodium Discontinued Reason: Doctor's Order 100 mg PO BID 60 caps 0RF K59.04 - Chronic idiopathic constipation sennosides Discontinued Reason: Doctor's Order 17.2 mg (2 x 8.6 mg) PO BEDTIME 180 tabs 3RF constipation K59.00 - Constipation, unspecified Coding Level of Care Code Est Pt Level 4 (83116) Diagnoses Celiac disease K90.0 Gastroesophageal reflux disease, unspecified whether esophagitis present K21.9 Esophagitis presence: esophagitis presence not specified Chronic idiopathic constipation K59.04 Irritable bowel syndrome with constipation K58.1 Irritable bowel syndrome type: with constipation Gastroparesis K31.84 Time Spent (min) 35 Comment 20 minutes spent with patient and additional 15 minutes spent reviewing her records
[2023-12-26 13:45] VITALS: BP 108/58; PULSE 94; O2SAT 99; BMI 22.8
== END 2023-12-26 14:35 | disposition home or self-care (01) ==
PROVIDERS: PCP General Practice; Visit Provider Nurse Practitioner Family
DX: K90.0 Celiac disease (principal); K21.9 Gastro-esophageal reflux disease without esophagitis; K59.04 Chronic idiopathic constipation; K58.1 Irritable bowel syndrome with constipation; K31.84 Gastroparesis
CPT/HCPCS: 99214

== ENCOUNTER → 2023-12-26 13:41 | Outpatient (BNVA) | payer MEDICAID, SELFPAY | PROVIDERS: PCP General Practice; Visit Provider Nurse Practitioner Family | DX: K21.9 Gastro-esophageal reflux disease without esophagitis (principal); K58.1 Irritable bowel syndrome with constipation; K90.0 Celiac disease; K31.84 Gastroparesis | CPT/HCPCS: 99212 ==

== ENCOUNTER 2024-01-03 14:53 | Outpatient (AMB) | payer MEDICAID, SELFPAY ==
[2024-01-03 14:58] VITALS: BP 100/60; O2SAT 96; BMI 22.5
--- NOTE | 2024-01-03 14:58 | MHC.OFFVIS ---
Vital Signs 01/03/24 14:58 Height 5 ft 1 in Weight 119 lb BMI 22.5 BP 100/60 Blood Pressure Location Lt brachial Pulse Oximetry (%) 96 Oxygen Delivery Method Room Air Intake Visit Reasons: Polyarthritis Intake Note: Patient is a new patient externally referred by PCP for polyarthritis. Sample Mounter Name: [id number] Derek Allergies iodine [IODINE] Allergy (Severe, Verified 01/03/24 14:59) HIVES, THROAT SWELLING gluten Allergy (Intermediate, Verified 01/03/24 14:59) Vomiting Medication List - Last Reconciled 01/03/24 by Mackenzie Tesfaye MD acetone (urine) test (Ketostix strips) As directed albuterol sulfate 90 mcg/actuation (ProAir HFA) 2 puffs PO Q4-6H PRN albuterol sulfate mg inhalation TID-QID blood sugar diagnostic (Accu-Chek Guide test strips) As directed bupropion HCl XL 150 mg PO QAM dextroamphetamine-amphetamine 5 mg 1 tab PO BID diclofenac potassium 50 mg PO BID dicyclomine 10 mg PO TID esomeprazole magnesium (Nexium) 40 mg PO DAILY famotidine 40 mg PO BEDTIME fluoxetine 10 mg PO DAILY hydrocortisone 2.5% (Proctosol HC) 1 appl [place] BID-QID PRN hydroxyzine HCl 25 mg PO BID PRN insulin glargine (Lantus U-100 Insulin) 22 units subcut BEDTIME insulin lispro (Humalog U-100 Insulin) 0 - 100 units subcut DAILY lidocaine 5% 1 patch topical DAILY linaclotide (Linzess) 145 mcg PO DAILY lorazepam 0.5 mg PO DAILY PRN ondansetron 4 mg PO Q8H PRN quetiapine 75 mg PO BEDTIME trazodone 25 - 50 mg PO BEDTIME PRN HPI Comments Details: 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 First started in her feet she would wake up with her feet swollen unable to stand on it and then this would get worse throughout the day. It then progressed to involve her hands her wrists and her shoulders. She does note that her hands would get swollen and she will be unable to open and close them. Also reports morning stiffness lasting for about 30-60 minutes. She also notes pain and swelling to her bilateral knees. She was diagnosed with type 1 diabetes as a child and then subsequently in her teens was diagnosed with celiac disease. She has been diligent with her diet. While she has been having this joint pain she denies worsening skin rash or worsening GI symptoms. She denies any eye inflammation, oral/nasal ulcers, blood in the stool or mucus. She is reporting hair thinning and worsening fatigue. [facility] Medical History (Updated 01/03/24 @ 16:04 by Mackenzie Tesfaye MD) Celiac disease Seronegative inflammatory arthritis Asthma GERD (gastroesophageal reflux disease) Type 1 diabetes mellitus Chronic idiopathic constipation Chronic gastric erosion Surgical History History of lumpectomy of right breast (06/26/23) History of right oophorectomy H/O hand surgery Hx of esophagogastroduodenoscopy Family History Father No problems noted. Mother Asthma Maternal Grandmother Diabetes HTN (hypertension) Breast cancer Sister Diabetes Social History Household Members: Spouse Alcohol intake: current Alcohol intake frequency: does not drink Patient Tobacco Use Status: Never used Tobacco Current occupational status: unemployed Current occupation: right hand dominant Female Reproductive History Menstrual Age of Menarche: 13 Review of Systems Const Details: Review of Systems Constitutional: Denies fever, chills, weight loss ENT: Denies vision changes, eye pain or eye redness, dental caries, dry mouth GI: Denies nausea, vomiting, diarrhea, abdominal pain, change in BM Pulm: Denies SOB, GOLD, hemoptysis, wheezing Cards: Denies chest pain, palpitations Skin: Denies Raynaud's, rash, nail changes, photosensitivity, PEDIATRICIAN MANAGING PARTNER: Denies headaches, weakness, paresthesias, recurrent falls MSK: Complains of joint pain and joint stiffness. Denies joint swelling, muscle weakness, bone pain All other systems reviewed and are unremarkable except noted above Physical Exam Vital Signs: Last Vital Signs BP 100/60 01/03/24 14:58 Pulse Ox 96 01/03/24 14:58 Oxygen Delivery Method Room Air 01/03/24 14:58 BMI result Body Mass Index 22.5 Const Other: Physical Examination Patient well appearing and in no apparent painful distress Able to rise from chair without support. ?Gait normal. Constitutional: ?Mucous membranes pink and moist patient alert and cooperative HEENT: ?Conjunctiva and sclera clear. ?Pupils equal round and reactive to light. ?No lymphadenopathy. ?Normal dentition. Resp: ?Normal respiratory effort and able to speak in complete sentences. ?Clear to auscultation bilaterally. ?No crackles, rales, rhonchi, wheezes heard. Cards: ?Regular rate and rhythm. ?S1 and S2 heard no murmurs. ?Radial pulses intact bilaterally MSK: ?No deformity, swelling, abnormalities noted to bilateral hands. ?There is tenderness to palpation of MCPs 2-5 on bilateral hands. Also tenderness to palpation of PIPs on bilateral hands. Tenderness to palpation of wrists but full range of motion. Full range of motion of elbow without tenderness to palpation. Range of motion to bilateral shoulders limited right worse than left. Knees without evidence of edema full range of motion mild tenderness to palpation bilaterally. Positive squeeze test of bilateral feet with tenderness to palpation over the MTP joints. ?Has a sclerotic nodule in the palm of the right hand over the 2nd MCP which is the area of a recent flexor tendon sheath injection Results Reviewed Results Reviewed: Results reviewed Laboratory Tests 09/19/18 12/21/20 07/13/21 11:13 15:25 15:20 WBC RBC Hgb Hct Plt Count Sodium Potassium Chloride Carbon Dioxide Anion Gap BUN Creatinine Rheumatoid Factor < 15.0 Cycl Citrul Peptide IgG <16 TROY Screen Negative Tiss Transglutamin IgA >250.0 H 148.1 H 12/26/22 11/14/23 15:44 11:50 WBC 9.6 RBC 4.01 L Hgb 12.8 Hct 38.3 Plt Count 254 Sodium 136 Potassium 4.1 Chloride 103 Carbon Dioxide 22 Anion Gap 15 BUN 14 Creatinine 1.14 Rheumatoid Factor Cycl Citrul Peptide IgG TROY Screen Tiss Transglutamin IgA 46.7 H Assessment & Plan Assessment & Plan (1) Seronegative inflammatory arthritis: Code(s): M13.80 - Other specified arthritis, unspecified site Category: Medical Plan: #Seronegative Inflammatory Arthritis Related to Celiac Disease Patient with history and exam findings concerning for seronegative inflammatory arthritis. On the background of her notes celiac disease this is likely related to her celiac disease. She had history of negative RF and CCP back in 2019. Also had TROY negative results. Had a discussion with patient. Given that she is a type 1 diabetic we will avoid oral steroids. Her inflammation today does not warrant steroids. We will start Plaquenil 200 mg twice a day. Patient has fertility desires. We will review in 3 months (2) Celiac disease: Code(s): K90.0 - Celiac disease Category: Medical Plan: #Celiac Disease Patient reports to be adhering to a gluten free diet. Recommended that she continue same as this will also help with the joints. Plan I spent 40 minutes reviewing the record and labs, seeing the patient, discussing the treatment plan and documenting in the medical record Orders: Orders Erythrocyte Sedimentation Rate Today K90.0 - Celiac disease, M19.90 - Unspecified osteoarthritis, unspecified site C Reactive Protein Today K90.0 - Celiac disease, M19.90 - Unspecified osteoarthritis, unspecified site Rheumatoid Factor Today M19.90 - Unspecified osteoarthritis, unspecified site Cyclic Citrullinated Peptide Today M19.90 - Unspecified osteoarthritis, unspecified site Medications: New hydroxychloroquine (Plaquenil) 200 mg PO BID 90 days 180 tabs 1RF Coding Level of Care Code New Pt Level 4 (94063) Diagnoses Seronegative inflammatory arthritis M13.80 Celiac disease K90.0
== END 2024-01-03 16:02 | disposition home or self-care (01) ==
PROVIDERS: PCP General Practice; Referring Provider General Practice; Visit Provider Student in an Organized Health Care Education/Training Program
DX: M13.80 Other specified arthritis, unspecified site (principal); K90.0 Celiac disease
CPT/HCPCS: 99204

== ENCOUNTER 2024-01-03 14:53 | Outpatient (REF) | payer MEDICAID, SELFPAY ==
[2024-01-03 17:41] LABS: Erythrocyte Sedimentation Rate 20 MM/HR (0-20)
[2024-01-03 17:55] LABS: C Reactive Protein 0.14 mg/dL (< or = 0.50)
[2024-01-03 19:16] LABS: Rheumatoid Factor < 13.0 IU/mL (<15.0)
[2024-01-08 17:18] LABS: Cyclic Citrullinated Peptide <16 UNITS
== END 2024-01-03 14:54 | disposition home or self-care (01) ==
LOC: HO.LAB 14:53
PROVIDERS: PCP General Practice; Visit Provider Student in an Organized Health Care Education/Training Program
DX: K90.0 Celiac disease (principal); M19.90 Unspecified osteoarthritis, unspecified site; M13.80 Other specified arthritis, unspecified site
CPT/HCPCS: 36415; 85652; 86140; 86200; 86431; 99202

== ENCOUNTER 2024-01-19 09:26 | Outpatient (REF) | payer MEDICAID, SELFPAY | END 2024-01-19 09:27 | disposition home or self-care (01) | LOC: HO.HOSX 09:26 | DX: M25.511 Pain in right shoulder (principal); M75.101 Unspecified rotator cuff tear or rupture of right shoulder, not specified as traumatic; M19.011 Primary osteoarthritis, right shoulder | CPT/HCPCS: 20610; 73030; 99212; J1010; J2003 ==

== ENCOUNTER 2024-01-19 13:41 | Outpatient (AMB) | payer MEDICAID, SELFPAY ==
[2024-01-19 13:44] VITALS: BMI 22.5
--- NOTE | 2024-01-19 13:44 | A.OFFVIS_ITS ---
Vital Signs 01/19/24 13:44 Height 5 ft 1 in Weight 119 lb BMI 22.5 Intake Visit Reasons: NewProb- RT shoulder pain w/ xray Intake Note: Loly is a 38 year old right hand dominant female who presents today for new problem visit with complaints of right shoulder pain. Patient states that her shoulder started to hurt after she received the covid Injection. 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 The patient reports that this pain began after she received the COVID vaccination. Of note, the patient was evaluated by Rheumatology since last visit, and was told that that visit that her findings are suspicious for a seronegative inflammatory arthritis. The patient reports that this pain she is experiencing in her right shoulder makes lifting and range of motion very difficult, and she feels extremely restricted by this. The patient inquires if there are any injections available to be able to help her shoulder pain, as she had trigger finger injections recently and she felt that these helped significantly. Patient denies any numbness or tingling in the right hand. No other acute complaints or concerns at this time. [facility] Medical History (Updated 01/22/24 @ 11:29 by DOROTHY Masterson) Celiac disease Seronegative inflammatory arthritis Asthma GERD (gastroesophageal reflux disease) Type 1 diabetes mellitus Chronic idiopathic constipation Chronic gastric erosion Surgical History History of lumpectomy of right breast (06/26/23) History of right oophorectomy H/O hand surgery Hx of esophagogastroduodenoscopy Family History Father No problems noted. Mother Asthma Maternal Grandmother Diabetes HTN (hypertension) Breast cancer Sister Diabetes Social History Household Members: Spouse Alcohol intake: current Alcohol intake frequency: does not drink Patient Tobacco Use Status: Never used Tobacco Current occupational status: unemployed Current occupation: right hand dominant Female Reproductive History Menstrual Age of Menarche: 13 Review of Systems Const All systems reviewed & are unremarkable except as noted in HPI and below Physical Exam Vital Signs: BMI result Body Mass Index 22.5 Extrem Other: On inspection, there is no visible deformity of the right shoulder No edema, erythema, ecchymosis noted No lacerations, abrasions, open areas No evidence of infection Patient reports diffuse tenderness to palpation about the right shoulder, worst over the greater tuberosity and posterior shoulder Strength 5/5 bilaterally on empty can Negative belly press Unable to assess lift-off due to restricted range of motion due to pain Positive Richey Distal sensation intact Capillary refill brisk Results Reviewed Results Reviewed: X-rays obtained in the office today and independently reviewed by me, Kevin Alcocer PA-C, demonstrate mild osteophyte formation in the glenohumeral joint of the right shoulder, consistent with osteoarthritis. No acute fracture or bony abnormality noted. Assessment & Plan Assessment & Plan (1) Painful arc syndrome of right shoulder: Code(s): M75.101 - Unspecified rotator cuff tear or rupture of right shoulder, not specified as traumatic Category: Medical (2) Osteoarthritis of right shoulder: Code(s): M19.011 - Primary osteoarthritis, right shoulder Category: Medical Plan 1. Right shoulder osteoarthritis 2. Painful arc syndrome of right shoulder I educated the patient about this condition I educated the patient about the treatment options available, patient would like to proceed with steroid injection at this time The risks and benefits of a steroid injection including but not limited to risk of damage to blood vessels, nerves, tendons, infection, skin bleaching, failure to improve symptoms, increased pain, and possible need for further injections or other intervention were discussed with the patient and the patient wishes to proceed with the steroid injection. Once consent was obtained, I aseptically prepped the area over the subacromial space of the right shoulder. I then injected the subacromial space of the right shoulder with a combination of 40 mg of dexamethasone and 8 mL of 1% lidocaine. The patient tolerated the procedure well with no complications. If the patient continues to experience symptoms over the following few weeks or months, they can make an appointment to return and discuss alternative treatment measures, such as physical therapy. Follow-up prn Orders: Orders XR shoulder RT min 2V 01/19/24 M25.511 - Pain in right shoulder Coding Level of Care Code Est Pt Level 3 (24906) Diagnoses Painful arc syndrome of right shoulder M75.101 Osteoarthritis of right shoulder M19.011
== END 2024-01-19 14:48 | disposition home or self-care (01) ==
PROVIDERS: PCP General Practice
DX: M75.101 Unspecified rotator cuff tear or rupture of right shoulder, not specified as traumatic (principal); M19.011 Primary osteoarthritis, right shoulder
CPT/HCPCS: 99213

== ENCOUNTER 2024-02-15 06:24 | Day surgery (SDC) | payer MEDICAID, SELFPAY ==
[2024-02-13 13:21] VITALS: BMI 22.8
[2024-02-13 13:50] VITALS: BMI 22.8
--- NOTE | 2024-02-14 09:04 | P.CONAN_ITS ---
Documented by User: Cassandra Briscoe NP 02/14/24 09:06 HPI - Anesthesia Eval Consult details Narrative: 38yo F for Upper Endoscopy Insulin pump in situ PMFSH Active Problems Active Problems: All Active Problems Osteoarthritis of right shoulder (Acute) Painful arc syndrome of right shoulder (Acute) Bilateral primary osteoarthritis of knee (Acute) Trigger finger, right index finger (Acute) Stiffness of right hand joint (Acute) Trigger finger, right middle finger (Acute) Fibroadenoma of right breast (Acute) Abnormal ultrasound of breast (Acute) Breast mass, right (Acute) Anemia (Chronic) Diverticulitis (Acute) Hemorrhoids (Acute) GERD (gastroesophageal reflux disease) (Acute) Chronic idiopathic constipation (Acute) IBS (irritable bowel syndrome) (Acute) Seronegative inflammatory arthritis (Acute) Celiac disease (Acute) Chronic gastric erosion (Acute) Past Medical History Medical History Insulin pump in place Seronegative inflammatory arthritis Asthma GERD (gastroesophageal reflux disease) Type 1 diabetes mellitus Celiac disease Chronic idiopathic constipation Chronic gastric erosion Family History Family History Father No problems noted. Mother Asthma Maternal Grandmother Diabetes HTN (hypertension) Breast cancer Sister Diabetes Family history of problems with anesthesia: No Surgical History Surgical History History of lumpectomy of right breast (06/26/23) History of right oophorectomy H/O hand surgery Hx of esophagogastroduodenoscopy History of Problems with Anesthesia: No Social History Social History Household Members: Spouse Are you a primary post acute care nurse to a significant other at home: No Do you presently have visiting nurse or other home services: No Alcohol intake: current Alcohol intake frequency: does not drink Patient Tobacco Use Status: Never used Tobacco e-Cigarette/Vaping Use: Never Used Use of substances other than those prescribed or required for medical reasons: No Have you been hit, kicked, punched, or otherwise hurt by someone within the past year? If so, by whom?: No Are you DNR?: No Advance Directives: No (will bring dos) Advance Directives Information Provided: Yes Advance Directives on File: No Recently lost weight without trying: No Nutrition Risks: No Nutritional Risk Patient : No FDLMP: 01/21/2024 : No Poor oral hygiene: No (lower partial) Current occupational status: unemployed Current occupation: right hand dominant Meds Allergies Allergy/AdvReac Type Severity Reaction Status Date / Time iodine [IODINE] Allergy Severe HIVES, Verified 02/15/24 07:05 THROAT SWELLING gluten Allergy Intermediate Vomiting Verified 02/15/24 07:05 Home Medications ?Medication ?Instructions ?Recorded ?Confirmed ?Last Taken ?Type lorazepam 0.5 mg tablet 0.5 mg PO DAILY PRN Anxiety 01/20/21 02/13/24 02/15/24 06:00 History albuterol sulfate 90 mcg/actuation 2 puff PO Q4-6H PRN Wheezing 10/19/21 02/13/24 Unknown History aerosol inhaler (ProAir HFA) insulin lispro 100 unit/mL 0 - 100 unit subcut DAILY 10/19/21 02/13/24 Unknown History subcutaneous solution (Humalog U-100 Insulin) blood sugar diagnostic (Accu-Chek #10 ea 04/10/23 01/03/24 Unknown History Guide test strips) lidocaine 5 % topical patch 1 patch topical DAILY 04/10/23 01/03/24 Unknown History acetone (urine) test (Ketostix #25 ea 09/15/23 01/03/24 Unknown History strips) fluoxetine 10 mg capsule 10 mg PO DAILY 09/15/23 02/13/24 Unknown History quetiapine 50 mg tablet 75 mg PO BEDTIME 09/15/23 02/13/24 Unknown History trazodone 50 mg tablet 25 - 50 mg PO BEDTIME PRN Insomnia 09/15/23 02/13/24 Unknown History bupropion HCl 150 mg 24 hr tablet, 150 mg PO QAM depressive disorder 12/26/23 02/13/24 02/15/24 06:00 History extended release diclofenac potassium 50 mg tablet 50 mg PO BID 12/26/23 02/13/24 Unknown History hydroxyzine HCl 25 mg tablet 25 mg PO BID PRN anxiety 12/26/23 02/13/24 Unknown History insulin glargine 100 unit/mL 22 unit subcut BEDTIME 12/26/23 01/03/24 Unknown History subcutaneous solution (Lantus U-100 Insulin) dicyclomine 10 mg capsule 10 mg PO TID PRN Abdominal Pain 02/13/24 02/13/24 Unknown History Exam Height,Weight and Vital Signs: Height 5 ft 1 in Weight 54.8 kg Assessment and Plan Assessment Anesthesia Assessment: Chart Reviewed Final Anesthetic Review Family History of Problems with Anesthesia: No History of Problems with Anesthesia: No Documented by User: Tiarra Ross MD 02/15/24 07:44 PMF Past Medical History Medical History Insulin pump in place Seronegative inflammatory arthritis Asthma GERD (gastroesophageal reflux disease) Type 1 diabetes mellitus Celiac disease Chronic idiopathic constipation Chronic gastric erosion Family History Family History Father No problems noted. Mother Asthma Maternal Grandmother Diabetes HTN (hypertension) Breast cancer Sister Diabetes Surgical History Surgical History History of lumpectomy of right breast (06/26/23) History of right oophorectomy H/O hand surgery Hx of esophagogastroduodenoscopy Social History Social History Household Members: Spouse Are you a primary post acute care nurse to a significant other at home: No Do you presently have visiting nurse or other home services: No Alcohol intake: current Alcohol intake frequency: does not drink Patient Tobacco Use Status: Never used Tobacco e-Cigarette/Vaping Use: Never Used Use of substances other than those prescribed or required for medical reasons: No Have you been hit, kicked, punched, or otherwise hurt by someone within the past year? If so, by whom?: No Are you DNR?: No Advance Directives: No (will bring dos) Advance Directives Information Provided: Yes Advance Directives on File: No Recently lost weight without trying: No Nutrition Risks: No Nutritional Risk Patient : No FDLMP: 01/21/2024 : No Poor oral hygiene: No (lower partial) Current occupational status: unemployed Current occupation: right hand dominant Meds Allergies Allergy/AdvReac Type Severity Reaction Status Date / Time iodine [IODINE] Allergy Severe HIVES, Verified 02/15/24 07:05 THROAT SWELLING gluten Allergy Intermediate Vomiting Verified 02/15/24 07:05 Home Medications ?Medication ?Instructions ?Recorded ?Confirmed ?Last Taken ?Type lorazepam 0.5 mg tablet 0.5 mg PO DAILY PRN Anxiety 01/20/21 02/13/24 02/15/24 06:00 History albuterol sulfate 90 mcg/actuation 2 puff PO Q4-6H PRN Wheezing 10/19/21 02/13/24 Unknown History aerosol inhaler (ProAir HFA) insulin lispro 100 unit/mL 0 - 100 unit subcut DAILY 10/19/21 02/13/24 Unknown History subcutaneous solution (Humalog U-100 Insulin) blood sugar diagnostic (Accu-Chek #10 ea 04/10/23 01/03/24 Unknown History Guide test strips) lidocaine 5 % topical patch 1 patch topical DAILY 04/10/23 01/03/24 Unknown History acetone (urine) test (Ketostix #25 ea 09/15/23 01/03/24 Unknown History strips) fluoxetine 10 mg capsule 10 mg PO DAILY 09/15/23 02/13/24 Unknown History quetiapine 50 mg tablet 75 mg PO BEDTIME 09/15/23 02/13/24 Unknown History trazodone 50 mg tablet 25 - 50 mg PO BEDTIME PRN Insomnia 09/15/23 02/13/24 Unknown History bupropion HCl 150 mg 24 hr tablet, 150 mg PO QAM depressive disorder 12/26/23 02/13/24 02/15/24 06:00 History extended release diclofenac potassium 50 mg tablet 50 mg PO BID 12/26/23 02/13/24 Unknown History hydroxyzine HCl 25 mg tablet 25 mg PO BID PRN anxiety 12/26/23 02/13/24 Unknown History insulin glargine 100 unit/mL 22 unit subcut BEDTIME 12/26/23 01/03/24 Unknown History subcutaneous solution (Lantus U-100 Insulin) dicyclomine 10 mg capsule 10 mg PO TID PRN Abdominal Pain 02/13/24 02/13/24 Unknown History Exam Airway Mallampati Class: II TM Dist: >3cm Neck ROM: Full Partial: Lower Loose/Missing/Broken Teeth: Yes, Upper and Lower Heart: RRR Lungs: CTA Assessment and Plan Assessment Anesthesia Assessment: Anesthesia Plan Discussed Final Anesthetic Review NPO: Yes ASA Class: III Final Preanesthetic Review: Meds/Allgs Chart Reviewed, Consent Obtained/Reviewed and Anes Risks/Benef Reviewed Patient Risk: Intermediate Procedure Risk: Intermediate Anesthetic Plan Anesthetic Plan: MAC: Disposition: Standard PACU
--- NOTE | 2024-02-15 06:44 | MHC.SHP ---
Pre-Procedural Eval Section A - 24 Hr Update-Section A only Date of Service: 02/15/24 Section B - Complete if H&P > 30 days Chief Complaint: Dysphagia, unspecified Relevant Family History (Specify if Yes): No Relevant Social History: None Present Medications: see Short Stay Collaborative assessment Medical History: Significant History (Insulin pump in place Seronegative inflammatory arthritis Asthma GERD (gastroesophageal reflux disease) Type 1 diabetes mellitus Celiac disease Chronic idiopathic constipation Chronic gastric erosion) History of Previous Operations: Relevant previous surgery/procedure and date(s) ( History of lumpectomy of right breast (06/26/23) History of right oophorectomy H/O hand surgery Hx of esophagogastroduodenoscopy) Allergies: Allergies Allergy/AdvReac Type Severity Reaction Status Date / Time iodine [IODINE] Allergy Severe HIVES, Verified 01/19/24 13:46 THROAT SWELLING gluten Allergy Intermediate Vomiting Verified 01/19/24 13:46 Review of Systems Sugical H&P ROS: Negative: Constitution, Cardiovascular, Respiratory, Neurological, Psychiatric, Hem-Onc, Allergic/Immunologic, Gastrointestinal, Genitourinary, Musculoskeletal, Integumentary, Endocrine and Eyes/Ears/Nose/Throat Exam Surgical H&P Exam: Normal: HEENT, Normal: Heart, Normal: Lungs, Normal: Extremities, Normal: Abdomen, Normal: Skin and Normal: Neurological Plan Diagnosis/Plan: Unchanged I have reviewed the history and physical and performed a pertinent physical examination on my patient. No changes have occurred unless specified. Time Spent With Patient Time: Total time managing care of this patient today ____ minutes.
[2024-02-15 06:57] VITALS: BP 103/64; PULSE 102; RESP 15; TEMP 37; O2SAT 99
[2024-02-15 07:04] LABS: UPreg QC Valid YES; Urine Pregnancy NEGATIVE (NEGATIVE)
[2024-02-15] MEDS: Lactated Ringers 1,000 ML 100 ML IVCONT (07:05)
[2024-02-15 07:08] LABS: Glucose, Whole Blood 165 mg/dL (60-115)
--- NOTE | 2024-02-15 07:57 | W.PM.OPN ---
Operative Note Operative Note Date of Service: 02/15/24 Narrative: Procedure Description: EGD Indication: MAC Anesthesia: MAC FLEXIBLE TRANSORAL UPPER GASTROINTESTINAL ENDOSCOPY UPPER ENDOSCOPY Consent: Indications for the procedure and potential complications of bleeding, perforation, reaction to medications and missed diagnosis were discussed with the patient and informed consent was obtained. Instrument: Olympus GIF H 190 J mid size upper endoscope Monitoring: Vital signs and clinical assessment, continuous EKG monitoring, Pulse oximetry, Carbon Dioxide monitoring and blood pressure monitoring were done throughout the procedure. Procedure: The patient was placed in the left lateral decubitis position and pre-procedure medications were administered and a bite block was placed. The endoscope was inserted into the mouth and advanced under direct vision to the third part of duodenum. A careful inspection was made as the upper endoscope was withdrawn including a retroflexed examination of the proximal stomach; Findings and interventions are described below. Findings: Larynx:normal Esophagus: GE junction at 35 cm, diaphragm hiatus at 35 cm, normal mucosa, bx taken from distal and proximal esophagus, patulous LES Stomach: normal mucosa . Biopsies were obtained. Grade 2 flap valve on retroflexed examination of the cardia. Reduced movement, pyloric outlet was stretched with wire guided ballloon to 20 mm, no tears seen Duodenum: Normal bulb and descending duodenum, bx taken, possible extrinsic bulb compression Intervention: Biopsies as noted above, wire guided balloon dilation Impression/Findings: possible gastroparesis patulous GEJ PLAN: dopper SMA r/o SMA or celiac axis compression -if neg then GES GERD precautions
[2024-02-15 08:02] VITALS: BP 90/50; PULSE 91; RESP 18; TEMP 37.1; O2SAT 100
[2024-02-15 08:17] VITALS: BP 96/56; PULSE 89; RESP 18; O2SAT 100
[2024-02-15 08:32] VITALS: BP 106/63; PULSE 87; RESP 16; TEMP 36.8; O2SAT 100
== END 2024-02-15 09:07 | disposition home or self-care (01) ==
PROVIDERS: Nurse Practitioner; PCP General Practice; Visit Provider Internal Medicine Gastroenterology
PROC: 0DJ08ZZ Inspection of Upper Intestinal Tract, Via Natural or Artificial Opening Endoscopic (ICD-10-PCS; CPT 43235; principal; 2024-02-15 07:30)
DX: R10.13 Epigastric pain (principal); K31.84 Gastroparesis; K22.0 Achalasia of cardia; K44.9 Diaphragmatic hernia without obstruction or gangrene; K21.9 Gastro-esophageal reflux disease without esophagitis; K90.0 Celiac disease; J45.909 Unspecified asthma, uncomplicated; M06.00 Rheumatoid arthritis without rheumatoid factor, unspecified site; E10.9 Type 1 diabetes mellitus without complications; Z96.41 Presence of insulin pump (external) (internal); Z79.4 Long term (current) use of insulin; Z79.899 Other long term (current) drug therapy; Z91.041 Radiographic dye allergy status; Z98.890 Other specified postprocedural states
CPT/HCPCS: 43245; 43239; 81025; 82947; 88305; 88307; 88313; 88342; C1726; J2003; J2704

== ENCOUNTER → 2024-02-15 06:24 | Outpatient (BNV) | payer MEDICAID, SELFPAY | PROVIDERS: PCP General Practice; Visit Provider Internal Medicine Gastroenterology | DX: R13.10 Dysphagia, unspecified (principal); K31.84 Gastroparesis; K22.89 Other specified disease of esophagus | CPT/HCPCS: 43239; 43249 ==

== ENCOUNTER 2024-02-26 15:03 | Outpatient (AMB) | payer MEDICAID, SELFPAY ==
[2024-02-26 15:06] VITALS: BP 110/56; PULSE 104; O2SAT 100; BMI 22.1
--- NOTE | 2024-02-26 15:06 | A.OFFVIS_ITS ---
Vital Signs 02/26/24 15:06 Height 5 ft 1 in Weight 116 lb 13.52 oz BMI 22.1 BP 110/56 L Blood Pressure Location Rt brachial Position Sitting Pulse 104 H Pulse Source Pulse Oximeter Pulse Oximetry (%) 100 Oxygen Delivery Method Room Air Intake Visit Reasons: S/P EGD Intake Note: Relevant Flags or Indicators ? Requires Range Mounter? Lico Salcido presents in office today for a scheduled s/p EGD FUV Relevant GI Sx as reported per pt? None ?Abdominal Pain - Epigastric x4 days s/p. None currently. ?Hx of any recent surgeries? EGD w/ TH Range Mounter Required: Yes Range Mounter Services: Range Mounter Present Range Mounter Name: [id number] [place] Information Interpreted: non-clinical & clinical Accompanied by: Child Allergies iodine [IODINE] Allergy (Severe, Verified 02/26/24 15:07) HIVES, THROAT SWELLING gluten Allergy (Intermediate, Verified 02/26/24 15:07) Vomiting HPI HPI S/P EGD: Details: LAST VISIT Celiac disease GERD (gastroesophageal reflux disease) Chronic idiopathic constipation IBS (irritable bowel syndrome) Gastroparesis Plan Significant gastroparesis found on gastric emptying study. Unsure if patient was very constipated than she does admit to be constipated no BM for few days. Also if patient is not avoiding gluten duodenal motility could be delayed. Patient has not been complaining of any abdominal pain or discomfort. Study was done back in October. Patient is not sure if she had any symptoms then. As of right now patient will eat smaller meals avoid fiber. Encouraged to drink fluids increase activity to promote better bowel motility. Will start her on Linzess for now and see if that will help her. Patient will continue Nexium and famotidine. Avoid dietary triggers and late night snacking. Staying upright for minimum 3 hours after meals discussed with patient. Patient will follow-up in our office in 2 months, sooner on as needed basis. She is agreeable to this plan and verbalizes understanding of instructions. She was given the opportunity to questions and all questions answered ? Thank you for allowing me to participate in her care Medications New linaclotide (Linzess) 145 mcg PO DAILY 30 caps 2RF Discontinued docusate sodium Discontinued Reason: Doctor's Order 100 mg PO BID 60 caps 0RF K59.04 sennosides Discontinued Reason: Doctor's Order 17.2 mg (2 x 8.6 mg) PO BEDTIME 180 tabs 3RF constipation K59.00 UPPER ENDOSCOPY Findings: Larynx:normal Esophagus: GE junction at 38 cm, diaphragm hiatus at 38 cm, normal mucosa Stomach: full of solid food Duodenum: not entered Intervention: none Impression/Findings: possible gastroparesis, incomplete EGD-scope pulled back out due to large vol of food PLAN: GERD precautions repeat eGD after stays on clears day before consider GES TODAY'S VISIT Patient is here today for follow-up and to discuss upper endoscopy results. Patient denies any ill effects from the procedure, reports couple days of sore throat and trouble swallowing, however he has been doing well. Patient takes Nexium in the morning and her symptoms of acid reflux are suppressed. Patient only eats 2 smaller meals a day. Diagnosed with gastroparesis in October with GES. Patient was on Reglan in the past and was not able to tolerated. She does not have any nausea. Patient also has celiac and reports that she is avoiding gluten, however when asked what she had day before her procedure she states that she had pizza. Patient denies any nausea or vomiting. Denies any melena, hematochezia, unintentional weight loss or ribbon like stools. Patient is on insulin pump and reports that her blood sugar have been controlled. Patient reports that tomorrow she is flying to [place] and then she is moving to [place]. Patient was encouraged to get a GI specialist when she moves. Currently patient is taking Linzess 145 mcg daily and reports that she is able to move her bowels better. Patient denies any other GI concerning symptoms. [facility] Medical History Insulin pump in place Seronegative inflammatory arthritis Asthma GERD (gastroesophageal reflux disease) Type 1 diabetes mellitus Celiac disease Chronic idiopathic constipation Chronic gastric erosion Surgical History History of lumpectomy of right breast (06/26/23) History of right oophorectomy H/O hand surgery Hx of esophagogastroduodenoscopy Family History Father No problems noted. Mother Asthma Maternal Grandmother Diabetes HTN (hypertension) Breast cancer Sister Diabetes Social History Household Members: Spouse Are you a primary animal care service worker to a significant other at home: No Do you presently have visiting nurse or other home services: No 75 years or older and lives alone: No Alcohol intake: current Alcohol intake frequency: does not drink Patient Tobacco Use Status: Never used Tobacco e-Cigarette/Vaping Use: Never Used Current occupational status: unemployed Current occupation: right hand dominant Female Reproductive History Menstrual Age of Menarche: 13 Review of Systems Const Denies weight gain and Denies weight loss ENT Reports no additional complaints, Denies dysphagia and Denies odynophagia Card Reports no additional complaints Resp Reports no additional complaints GI Denies abdominal pain, Denies belching, Denies melena, Denies bloating, Denies change in bowel habits, Denies dysphagia, Denies excessive flatus, Denies dyspepsia, Denies heartburn, Denies diarrhea, Denies loose stools, Denies nausea, Denies odynophagia and Denies vomiting Musc Reports no additional complaints Neuro Reports no additional complaints Psych Reports no additional complaints Endo Reports no additional complaints Physical Exam Vital Signs: Last Vital Signs Pulse 104 H 02/26/24 15:06 BP 110/56 L 02/26/24 15:06 Pulse Ox 100 02/26/24 15:06 Oxygen Delivery Method Room Air 02/26/24 15:06 BMI result Body Mass Index 22.1 Const General: healthy appearing, no acute distress and well developed Nutritional Appearance: well nourished Orientation/consciousness: patient oriented x3 Resp Effort & Inspection: normal respiratory effort, able to speak in complete sentences, no tracheal deviation and symmetric chest movement Auscultation: clear to auscultation bilaterally Cardio Rate: regular rate GI Inspection: Yes normal to inspection and No distended Palpation (GI): Soft to palpation, not firm, nontender and No hepatosplenomegaly present Auscultation: normal bowel sounds General: Yes no CVA tenderness Back/Spine/Pelvis Back: no CVA tenderness Skin General skin exam: elasticity normal, turgor normal and dry skin Neuro General: patient oriented x3 Psych Appearance: grossly normal Mental Status: mental status grossly normal Assessment & Plan Assessment & Plan (1) Epigastric abdominal pain: Code(s): R10.13 - Epigastric pain Category: Medical (2) Celiac disease: Code(s): K90.0 - Celiac disease Category: Medical (3) GERD (gastroesophageal reflux disease): Code(s): K21.9 - Gastro-esophageal reflux disease without esophagitis Category: Medical Qualifiers: Esophagitis presence: esophagitis presence not specified Qualified Code(s): K21.9 - Gastro-esophageal reflux disease without esophagitis (4) Chronic idiopathic constipation: Code(s): K59.04 - Chronic idiopathic constipation Category: Medical (5) IBS (irritable bowel syndrome): Code(s): K58.9 - Irritable bowel syndrome, unspecified Category: Medical Qualifiers: Irritable bowel syndrome type: with constipation Qualified Code(s): K58.1 - Irritable bowel syndrome with constipation (6) Gastroparesis: Code(s): K31.84 - Gastroparesis Plan Patient was encouraged to call if she will have any question, patient is moving to [place]. 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 Continue Nexium. Small meals and more often encouraged, however patient is already doing this she has only 2 meals a day. Information regarding gastroparesis given to patient in Malay one from [facility] and one from [facility]. Patient is agreeable to current plan of care and verbalizes understanding of instructions. She was given the opportunity to ask questions and all questions answered. blast furnace checker used throughout the whole visit. Thank you for allowing me to participate in her care Coding Level of Care Code Est Pt Level 4 (80569) Diagnoses Epigastric abdominal pain R10.13 Celiac disease K90.0 Gastroesophageal reflux disease, unspecified whether esophagitis present K21.9 Esophagitis presence: esophagitis presence not specified Chronic idiopathic constipation K59.04 Irritable bowel syndrome with constipation K58.1 Irritable bowel syndrome type: with constipation Gastroparesis K31.84 Time Spent (min) 35 Comment 20 minutes spent with patient and additional 15 minutes spent reviewing her records
== END 2024-02-26 15:37 | disposition home or self-care (01) ==
PROVIDERS: PCP General Practice; Visit Provider Nurse Practitioner Family
DX: R10.13 Epigastric pain (principal); K90.0 Celiac disease; K21.9 Gastro-esophageal reflux disease without esophagitis; K59.04 Chronic idiopathic constipation; K58.1 Irritable bowel syndrome with constipation; K31.84 Gastroparesis
CPT/HCPCS: 99214

== ENCOUNTER → 2024-02-26 15:03 | Outpatient (BNVA) | payer MEDICAID, SELFPAY | PROVIDERS: PCP General Practice; Visit Provider Nurse Practitioner Family | DX: K90.0 Celiac disease (principal); K21.9 Gastro-esophageal reflux disease without esophagitis; K59.04 Chronic idiopathic constipation; K58.1 Irritable bowel syndrome with constipation; K31.84 Gastroparesis; R10.13 Epigastric pain | CPT/HCPCS: 99212 ==